=== PATIENT | female | born 1970 | race Caucasian/White ===

== ENCOUNTER → 2020-05-29 14:26 | Outpatient (BNVA) | payer MEDICARE, MEDICAID, SELFPAY | PROVIDERS: Family Provider Internal Medicine; Visit Provider Nurse Practitioner Family | DX: M54.6 Pain in thoracic spine (principal); M85.80 Other specified disorders of bone density and structure, unspecified site; M47.9 Spondylosis, unspecified | CPT/HCPCS: 72072 ==

== ENCOUNTER 2020-09-16 08:40 | Outpatient (CLI) | payer MEDICARE, MEDICAID, SELFPAY ==
--- NOTE | 2020-09-16 08:46 | CT_ITS ---
WS: [id number] CT scan of the neck. Additional two-dimensional coronal and sagittal reconstruction was performed. Clinical Data: OTALGIA BILATERAL Comparison: None. DLP: 1349.[address] scans at [facility] use at least one of these dose optimization techniques: automat ed exposure control; mA and/or kV adjustment per patient size (includes targeted exams where dose is matched to clinical indication); or iterative reconstruction. Findings: No lymphadenopathy is noted. The salivary glands are unremarkable. There is no prevertebral soft tiss ue swelling. The larynx is symmetric. The thyroid gland shows normal enhancement. The floor of the mo uth and parapharyngeal spaces are normal. The oral cavity is unremarkable. The carotid arteries bifurcate normally. The vertebral arteries are normal. The cervical spine shows mild osteoarthritic anterior spurring at C6-C7.. The lung apices show no abnormalities. The portions of the intracranial circulation which are seen demonstrate no abnormalities. No erosion of the skull or skull base is seen. The mastoid air cells, internal auditory canals, sella turcica, intraorbital c ontents and paranasal sinuses are normal. CT/CT neck w con* [id number] Impression: Negative CT scan of the neck.
[2020-09-16] MEDS: iohexol 300 mg/mL 100 mL Btl IV (09:39)
== END 2020-09-16 08:41 | disposition home or self-care (01) ==
PROVIDERS: PCP Internal Medicine; Visit Provider Otolaryngology
DX: H92.03 Otalgia, bilateral (principal)
CPT/HCPCS: 70491; Q9967

== ENCOUNTER 2020-10-30 12:07 | Inpatient (IN) | payer MEDICARE, MEDICAID, SELFPAY ==
[2020-10-30] VITALS (10 sets, daily range): BP systolic 119–136; BP diastolic 73–86; PULSE 66–86; RESP 14–23; TEMP 36.7–36.9; O2SAT 95–100; BMI 21.1
--- NOTE | 2020-10-30 12:41 | XRR_ITS ---
PROCEDURE INFORMATION: Exam: XR Chest, 1 View Exam date and time: 10/30/2020 1:45 PM Age: 50 years old Clinical indication: Cough and dyspnea; Additional info: Cough/dyspnea TECHNIQUE: Imaging protocol: XR of the chest Views: 1 view. COMPARISON: CR Chest 1 [place] [id number] 10/03/2014 2:59 PM FINDINGS: Lungs: Unremarkable. No consolidation. Pleural space: Unremarkable. No pleural effusion. No pneumothorax. Heart/Mediastinum: Unremarkable. No cardiomegaly. Bones/joints: Unremarkable. The examination is stable since prior examination. XR/XR chest 1V portable [id number] IMPRESSION: No acute findings.
--- NOTE | 2020-10-30 12:49 | ED_ITS ---
HPI - Weakness General: Chief complaint: Weakness Stated complaint: Low BP, Dehydrated Time Seen by Provider: 10/30/20 12:27 History of Present Illness: HPI Narrative: The patient is a 50-year-old female with past medical history ALS who comes to the ER from Dr. Oh's office. The patient has been having low-grade fevers, cough, shortness of breath, and increasing generalized weakness for the past couple days. She was sent in for further evaluation as she is generally weak and for pneumonia work-up and fluids. The patient says she took an albuterol inhaler yesterday and had some significant improvement of her shortness of breath. MD Complaint: generalized weakness and lack of energy Onset (ago): day(s) (2) Duration: constant Location: generalized Severity: moderate Quality: aching Relieving factors: none Exacerbating factors: exertion Context: recent illness Associated symptoms: Reports chills and myalgias; Denies chest pain, confusion or headache(s) Review of Systems General: Reports: 10 or more systems reviewed and unremarkable except in HPI and below Const: Reports: chills Eyes: Denies: change in vision, blurry vision or eye redness ENMT: Denies: throat pain, swelling of lips/tongue, ear or mastoid pain or nasal congestion Card: Denies: chest pain Resp: Reports: dyspnea, productive cough and non-productive cough GI: Denies: abdominal pain, diarrhea or GI cramping : Denies: flank pain, difficulty voiding, urinary frequency or urinary urgency Musc: Denies: neck pain, back pain, extremity pain, joint pain, joint redness, limited range of motion or muscle weakness Skin/Breast: Denies: rash, pruritus, erythema, skin pain or skin tenderness Neuro: Reports: weakness in extremities (Generalized weakness. No focal weakness. Her ALS symptoms are unchanged fro); Denies: headache(s), numbness in extremities, sensory changes, difficulty walking, dizziness, confusion or Slurred speech present Psych: Denies: anxiety or depression Endo: Denies: polyuria All/Imm: Denies: urticaria, throat swelling or tongue swelling Physical Exam Const: COMMON NORMALS: no acute distress, average body habitus, patient oriented x3, no limitations, healthy appearing, alert and well nourished GENERAL APPEARANCE: cooperative, comfortable, well kempt and well developed ORIENTATION/CONSCIOUSNESS: Yes awake, Yes oriented to person, Yes oriented to place and Yes oriented to time HENMT: COMMON NORMALS: normocephalic, external ears normal and Normal external nose present HEAD & SCALP: normal to inspection and normocephalic NOSE: N ormal external nose present EXTERNAL EAR: Yes external ears normal MOUTH: Normal oral and palatal mucosa present THROAT: posterior oropharynx normal Eye: COMMON NORMALS: Equal, round and reactive pupils present and EOMs intact bilaterally GENERAL EYE: appearance normal, both eyes and all related structures PUPIL: Yes Equal, round and reactive pupils present Neck/C-Spine: COMMON NORMALS: full ROM, no lymphadenopathy, no meningeal signs and no JVD GENERAL: Yes normal visual inspection Lymph: LYMPHATIC: no lymphadenopathy noted Chest: COMMONS NORMALS: normal inspection of the chest and normal palpation of entire chest wall Resp: COMMON NORMALS: normal respiratory effort, No retractions, No use of accessory muscles and percussion normal EFFORT & INSPECTION: Yes able to speak in complete sentences, No tachypneic, No respiratory distress, Yes Actively coughing, No uses accessory muscles and Yes other (Coarse breath sounds bilaterally at the bases) AUSCULTATION: diminished lung sounds PERCUSSION: percussion normal Cardio: COMMON NORMALS: no JVD, regular rate, regular rhythm, S1 normal heart sound present, S2 normal heart sound present and Peripheral pulses 2+ throughout RATE: regular rate RHYTHM: regular rhythm HEART SOUNDS: S1 normal heart sound present and S2 normal heart sound present PERIPHERAL PULSES: Peripheral pulses 2+ throughout GI: COMMON NORMALS: Normal to inspection, nondistended, normoactive bowel sounds present, Soft to palpation, non-tender and no masses INSPECTION: Yes normal to inspection PALPATION: Yes Soft to palpation : COMMON NORMALS: Yes no CVA tenderness BLADDER/KIDNEY EXAM: Yes no CVA tenderness Back/Pelvis: COMMON NORMALS: no CVA tenderness, thoracic and lumbar spine normal to inspection, no thoracic nor lumbar tenderness and thoraco-lumbar ROM normal Extremity: COMMON NORMALS: normal to inspection, full ROM, capillary refill normal, no joint enlargement and no pedal edema GENERAL: Yes normal exam except as noted Neuro: SELENA COMA SCALE: other (She has chronic generalized weakness from her ALS. This is unchanged and she feels fatigued but still has acceptable power in all extremities. No new focal weakness) COMMON NORMALS: patient oriented x3, CN's II-XII intact bilaterally, moves all extremities, no focal motor deficits, no sensory deficits noted and gait normal SENSORIUM/ORIENTATION: Yes alert, Yes oriented to person, Yes oriented to place and Yes oriented to time MENINGEAL SIGNS: Yes no meningeal signs Psych: COMMON NORMALS: mental status grossly normal, Normal thought process present, cooperative, normal affect and speech normal APPEARANCE: Yes well kempt ATTITUDE: Yes calm SPEECH: Yes normal speech THOUGHT PROCESS: Normal thought process present Skin: COMMON NORMALS: no rashes or lesions noted GENERAL SKIN EXAM: no rashes or lesions noted Course Vital Signs: Vital signs: Vital Signs Temperature 98.4 F 10/30/20 12:16 Pulse Rate 70 10/30/20 14:01 Respiratory Rate 18 10/30/20 14:01 Blood Pressure 119/78 10/30/20 13:47 Pulse Oximetry 100 10/30/20 14:01 MDM - Weakness MDM Narrative: Medical decision making narrative: The patient likely has acute bronchitis versus Covid versus other pathology. CXR negative. Rapid covid negative. Related to this infectious proximal as she has increasing general weakness. She has baseline ALS which causes her weakness. She is unable to get out of bed and will be unable to care for herself at home so I discussed with Dr. Arreola who accepts for observation Differential Diagnosis: Weakness Differential Diagnosis: Likely dehydration (Acute bronchitis) Lab Data: Labs: Lab Results 10/30/20 10/30/20 10/30/20 Range/Units 13:40 13:40 13:40 WBC 6.2 (4.0-10.0) 10^3/ uL RBC 4.39 (4.1-5.3) 10^6/u L Hgb 12.6 (11.5-15.3) g/dL Hct 37.5 (37.0-47.0) % MCV 85.4 (81-99) fL MCH 28.7 (28.0-34.0) pg MCHC 33.6 (30.0-36.0) g/dL RDW 13.2 (12.1-15.1) % Plt Count 300 (130-400) 10^3/c mm MPV 9.8 (7.4-10.4) fL Neut % (Auto) 47.7 % Lymph % (Auto) 41.5 % [place] % (Auto) 8.9 % Eos % (Auto) 1.6 % Baso % (Auto) 0.3 % Neut # (Auto) 2.96 (1.8-7.7) 10^3/u L Lymph # (Auto) 2.6 (0.8-4.8) 10^3/u L [place] # (Auto) 0.6 (0.2-0.9) 10^3/u L Eos # (Auto) 0.1 (0.0-0.8) 10^3/u L Baso # (Auto) 0.0 (0.0-0.1) 10^3/u L Nucleated RBC % (a uto) 0 % Nucleated RBCs # 0.0 /100WBC Sodium 137 (136-145) mmol/L Potassium 3.4 L (3.5-5.1) mmol/L Chloride 104 (98-107) mmol/L Carbon Dioxide 25 (22-29) mmol/L Anion Gap 11.4 (5-19) BUN 8 (6-20) mg/dL Creatinine 0.5 (0.5-0.9) mg/dL GFR Calculation 131.1 H (90-130) mL/min Glucose 95 (65-115) mg/dL Calculated Osmolal ity 282 L (285-295) mOsm/k g Lactate 0.8 (0.5-2.2) mmol/L Calcium 8.7 (8.5-10.5) mg/dL Total Bilirubin 0.5 (0.15-1.2) mg/dL AST 20 (0-32) U/L ALT 19 (0-33) U/L Alkaline Phosphata se 69 (35-105) IU/L Creatine Kinase 43 (26-192) U/L Total Protein 6.6 (6.6-8.7) g/dL Albumin 4.0 (3.5-5.2) g/dL Globulin 2.6 (1.3-4.6) g/dL Influenza Type A A g (Negative) Influenza Type B A g (Negative) SARS-CoV-2 Ag (Rap id) (Negative) 10/30/20 10/30/20 Range/Units 13:40 13:40 WBC (4.0-10.0) 10^3/ uL RBC (4.1-5.3) 10^6/u L Hgb (11.5-15.3) g/dL Hct (37.0-47.0) % MCV (81-99) fL MCH (28.0-34.0) pg MCHC (30.0-36.0) g/dL RDW (12.1-15.1) % Plt Count (130-400) 10^3/c mm MPV (7.4-10.4) fL Neut % (Auto) % Lymph % (Auto) % [place] % (Auto) % Eos % (Auto) % Baso % (Auto) % Neut # (Auto) (1.8-7.7) 10^3/u L Lymph # (Auto) (0.8-4.8) 10^3/u L [place] # (Auto) (0.2-0.9) 10^3/u L Eos # (Auto) (0.0-0.8) 10^3/u L Baso # (Auto) (0.0-0.1) 10^3/u L Nucleated RBC % (a uto) % Nucleated RBCs # /100WBC Sodium (136-145) mmol/L Potassium (3.5-5.1) mmol/L Chloride (98-107) mmol/L Carbon Dioxide (22-29) mmol/L Anion Gap (5-19) BUN (6-20) mg/dL Creatinine (0.5-0.9) mg/dL GFR Calculation (90-130) mL/min Glucose (65-115) mg/dL Calculated Osmolal ity (285-295) mOsm/k g Lactate (0.5-2.2) mmol/L Calcium (8.5-10.5) mg/dL Total Bilirubin (0.15-1.2) mg/dL AST (0-32) U/L ALT (0-33) U/L Alkaline Phosphata se (35-105) IU/L Creatine Kinase (26-192) U/L Total Protein (6.6-8.7) g/dL Albumin (3.5-5.2) g/dL Globulin (1.3-4.6) g/dL Influenza Type A A g Negative (Negative) Influenza Type B A g Negative (Negative) SARS-CoV-2 Ag (Rap id) Negative (Negative) Discharge Plan Discharge Prescriptions: No Action ondansetron HCl 4 mg tablet 4 mg PO Q6H PRN (Reason: nausea/vomiting) RF: 0 Senna-S 8.6-50 mg Tablet 1 tab-cap PO BID@0700,1900 RF: 0 omeprazole 40 mg capsule,delayed release(DR/EC) 40 mg PO DAILY@0700 RF: 0 propranolol 10 mg tablet 10 mg PO TID@0700,1300,1900 RF: 0 methocarbamol 750 mg tablet 750 mg PO TID@0700,1300,1900 RF: 0 Synthroid 125 mcg tablet 125 mcg PO DAILY@0700 RF: 0 triamcinolone acetonide 0.1 % Ointment 1 applic TOPICAL BID@07,1900 RF: 0 ibuprofen 200 mg Tablet 200 mg PO Q6H PRN (Reason: Pain) RF: 0 riluzole 50 mg tablet 50 mg PO Q12H RF: 0 montelukast 10 mg Tablet 10 mg PO DAILY@0700 RF: 0 lactulose 10 gram/15 mL Solution 15 ml PO BID@0700,1900 RF: 0 Pristiq 100 mg Tablet Extended Release 24 Hr 150 mg PO DAILY@0700 RF: 0 Linzess 145 mcg capsule 145 mcg PO DAILY@0700 RF: 0 Coding Level of Care Code ED [place] Protection Maintainer for Chg Fwd Exam Comprehensive
[2020-10-30 13:57] LABS: Basophils % 0.3 %; Eosinophils # 0.1 10^3/uL (0.0-0.8); Eosinophils % 1.6 %; Hematocrit 37.5 % (37.0-47.0); Hemoglobin 12.6 g/dL (11.5-15.3); Lymphocytes # 2.6 10^3/uL (0.8-4.8); Lymphocytes % 41.5 %; Mean Corpuscular HGB Conc 33.6 g/dL (30.0-36.0); Mean Corpuscular Hemoglobin 28.7 pg (28.0-34.0); Mean Corpuscular Volume 85.4 fL (81-99); Mean Platelet Volume 9.8 fL (7.4-10.4); Monocytes # 0.6 10^3/uL (0.2-0.9); Monocytes % 8.9 %; Neutrophils # 2.96 10^3/uL (1.8-7.7); Neutrophils % 47.7 %; Nucleated Red Blood Cells % 0 %; Platelet Count 300 10^3/cmm (130-400); Red Blood Count 4.39 10^6/uL (4.1-5.3); Red Cell Distribution Width 13.2 % (12.1-15.1); White Blood Count 6.2 10^3/uL (4.0-10.0)
[2020-10-30 14:17] LABS: Lactate (Lactic Acid level) 0.8 mmol/L (0.5-2.2)
[2020-10-30 14:19] LABS: Alanine Aminotransferase 19 U/L (0-33); Alkaline Phosphatase 69 IU/L (35-105); Anion Gap 11.4 (5-19); Aspartate Amino Transferase 20 U/L (0-32); Blood Urea Nitrogen 8 mg/dL (6-20); Calcium 8.7 mg/dL (8.5-10.5); Carbon Dioxide 25 mmol/L (22-29); Chloride 104 mmol/L (98-107); Creatine Phosphokinase 43 U/L (26-192); Globulin 2.6 g/dL (1.3-4.6); Glomerular Filtration Rate 131.1 mL/min (90-130); Glucose 95 mg/dL (65-115); Osmolality Calculated 282 mOsm/kg (285-295); Potassium 3.4 mmol/L (3.5-5.1); Sodium 137 mmol/L (136-145); Total Bilirubin 0.5 mg/dL (0.15-1.2); Total Protein 6.6 g/dL (6.6-8.7)
[2020-10-30] MEDS: ketorolac 30 mg/mL INJ IM (14:24)
[2020-10-30] MEDS: sodium chloride 0.9% 1,000 ML 999 ML IV (14:24)
[2020-10-30 14:32] LABS: Influenza A by IFA Negative (Negative); Influenza B by IFA Negative (Negative); SARS Covid-2 Antigen Negative (Negative)
[2020-10-30 15:31] LABS: Add Urine Microscopic? NO
[2020-10-30 15:45] LABS: Bilirubin Urine Neg (Negative); Blood Urine Neg (Negative); Glucose Urine UA Norm (Normal); HCG Qualitative Urine. Negative (Negative); Ketones Urine Negative (Negative); Leukocyte Esterase Urine Negative (Negative); Nitrate Urine Negative (Negative); Protein Urine Neg (Negative); Specific Gravity, Urine 1.005 (1.005-1.030); Urine Appearance Clear (CLEAR); Urine Color Yellow (Yellow); Urobilinogen Urine Norm (Negative); pH Urine 5 (5-7)
--- NOTE | 2020-10-30 16:27 | P.HP_ITS ---
Providers/Chief Complaint Primary Care Provider: Trice Hoskins MD Chief Complaint: Low BP, Dehydrated History of Present Illness 50-year-old female with a past medical history significant for anxiety, depression,neuropathy, hypertension, hypothyroidism, chronic obstructive pulmonary disease and amyotrophic lateral sclerosis, dysphagia with prior PEG tube who presented with generalized weakness. Patient stated normally she is ab le to walk with a cane however in the past three days she has not able able to ambulate due to weakness. Noted this to be bilateral lower extremity primarily. This was associated with dry cough and shortness of breath as well as low grade fevers. Denied any exposure to sick contacts. Upon arrival to ER her initial laboratory workup showed a WBC of 6.2, hemoglobin of 12.6, hematocrit 37.5 and a platelet count of 300. D-dimer was less than 0.27. Sodium 137, potassium 3.4, chloride 104, bicarb 25, BUN 8 and creatinine is 0.5. Lactic acid was 0.8. Ferritin of 40. LFTs within normal limits. CK of 43. urinalysis is negative. Influenza A/B negative. COVID-19 rapid antigen was also negative. PCR was sent and pending. Imaging studies include chest x-ray which did not show any acute abnormality. At the time of my evaluation patient was alert and awake however did have a notable dry cough. While in emergency room she was given IV fluid nebulized treatment. Due to progressive weakness and inability to care for self at home she was admitted to hospital Review of Systems General: Reports: 10 or more systems reviewed and unremarkable except in HPI and below Medications/Allergies Home Medications Medication Instructions Recorded Confirmed Last Taken Type albuterol sulfate 2.5 mg INHALATION Q6H 10/30/20 10/30/20 10/30/20 History cetirizine 10 mg PO DAILY@0700 10/30/20 10/30/20 10/30/20 History clonazepam 0.5 mg PO BID@0700,1900 10/30/20 10/30/20 10/30/20 History desvenlafaxine succinate [Pristiq] 150 mg PO DAILY@0700 10/30/20 10/30/20 10/30/20 History fluticasone propionate 50 mcg INTRANASAL BID@0700,1900 10/30/20 10/30/20 10/30/20 History ibuprofen 200 mg PO Q6H PRN 10/30/20 10/30/20 10/30/20 History lactulose 15 ml PO BID@0700,1900 10/30/20 10/30/20 10/30/20 History levothyroxine [Synthroid] 125 mcg PO DAILY@0700 10/30/20 10/30/20 10/30/20 History linaclotide [Linzess] 145 mcg PO DAILY@0700 10/30/20 10/30/20 10/30/20 History methocarbamol 750 mg PO TID@0700,1300,1900 10/30/20 10/30/20 10/30/20 History montelukast 10 mg PO DAILY@0700 10/30/20 10/30/20 10/30/20 History omeprazole 40 mg PO DAILY@0700 10/30/20 10/30/20 10/30/20 History ondansetron HCl 4 mg PO Q6H PRN 10/30/20 10/30/20 Unknown History propranolol 10 mg PO TID@0700,1300,1900 10/30/20 10/30/20 10/30/20 History riluzole 50 mg PO Q12H 10/30/20 10/30/20 10/30/20 History sennosides-docusate sodium 1 tab-cap PO BID@0700,1900 10/30/20 10/30/20 10/30/20 History [Senna-S] triamcinolone acetonide 1 applic TOPICAL BID@0700,1900 10/30/20 10/30/20 10/30/20 History Allergies Allergy/AdvReac Type Severity Reaction Status Date / Time buspirone [From BuSpar] Allergy ADR-Nausea Verified 10/30/20 15:02 clorazepate dipotassium Allergy ADR-Itching Verified 10/30/20 15:06 [From Tranxene T-Tab] doxycycline Allergy ADR-Chest Verified 10/30/20 15:03 Pain gabapentin Allergy Unknown Verified 10/30/20 15:06 orphenadrine [From Norflex] Allergy ALGY-Hives Verified 10/30/20 15:06 oxybutynin Allergy ADR-Headach Verified 10/30/20 15:06 e sertraline [From Zoloft] Allergy ADR-Muscle Verified 10/30/20 15:06 Pain verapamil Allergy ADR-Itching Verified 10/30/20 15:06 PFSH Acute PFSH: Social History (Updated 10/30/20 @ 20:04 by Bill Arreola MD) Smoking and tobacco status: former smoker Alcohol intake: never Substance/Drug Use: never Vitals/I&O/Wt Last Vital Signs Temp 98.4 F 10/30/20 12:16 Pulse 75 10/30/20 16:00 Resp 23 H 10/30/20 16:00 BP 121/73 10/30/20 16:00 Pulse Ox 98 10/30/20 16:00 Weight last 48 hrs Weight 55.792 kg Physical Exam Narrative: EXAM NARRATIVE: General: Awake alert, mild distress due to cough HEENT: Grossly unremarkable Chest : Non-labored respiration CVS : NSR ABD : Soft, NT, ND Ext : no edema Neuro : baseline speech abnormality, generalized weakness moving all ext. No lateralizing deficits. Data : 10/30/20 13:40 10/30/20 13:40 A&P Assessment and plan (1) Depression: Status: Acute (2) Hypothyroidism: Status: Acute (3) Hypertension: Status: Acute (4) COPD (chronic obstructive pulmonary disease): Status: Acute (5) Dysphagia: Status: Acute (6) ALS (amyotrophic lateral sclerosis): Status: Acute (7) Adult failure to thrive: Status: Acute (8) Generalized weakness: Status: Acute Generalized weakness / adult failure thrive - No obvious infectious process - Chest x-ray, UA appeared to be normal - Obtain blood culture x2 - Obtain procalcitonin - Will consult speech therapy - PT and OT consult - Fall precautions - Possibly due to progression of ALS - Will d/w neurology - NS at 75 cc/hr - NPO until [facility] Amyotrophic lateral sclerosis - Following with Dr. smith - WIll continue Riluzole - Ok to take home med Mild COPD/Asthma exacerbation - Continue albuteral 1 puff q4hr - Continue home meds - Chest x-ray - no obvious infectious process - Supplemental o2 as needed Hypertension - Propranolol 10 mg PO TID Hypothyroidism - Synthroid 125mcg PO daily - TSH reflex Ft4 in AM Anxiety/Depression - Prestiq 150 mg PO daily GI ppx - Protonix 40 mg PO daily DVT ppx - Lovenox 40 mg SQ daily Attestations Medical Necessity Statement*: Will place in observation status due to generalized weakness and adult failure to thrive. Anticipate less than 2 midnight stay in hospital for evaluation. Time Spent in Patient Care: Greater than 35 minutes (>than 50% of time spent in counselling and/or direct pt care on unit) . Coding Level of Care Code Acute Commercial Assistant for g Fwd Diagnoses Depression F32.9 Hypothyroidism E03.9 Hypertension I10 COPD (chronic obstructive pulmonary disease) J44.9 Dysphagia R13.10 ALS (amyotrophic lateral sclerosis) G12.21 Adult failure to thrive R62.7 Generalized weakness R53.1
[2020-10-30 18:15] LABS: D Dimer <= 0.27 ug/mIFEU (0-0.59)
[2020-10-30] MEDS: sodium chloride 0.9% 1,000 ML 75 ML IV (18:18)
[2020-10-30] MEDS: enoxaparin 40 mg/0.4 mL Syringe SUBCUT (18:25)
[2020-10-30] MEDS: propranolol 20 mg Tablet 10 MG PO (18:25)
[2020-10-30 18:28] LABS: Procalcitonin 0.04 ng/mL (0-0.5)
--- NOTE | 2020-10-30 18:35 | PC.NURSE ---
patient states she lives at home by self, her exhusband lives close and checks on her all the time. she said she has [facility], she said she uses [facility] at [facility].
[2020-10-30 18:39] LABS: C Reactive Protein 0.3 mg/L (0.0-4.9); Ferritin 40 ng/mL (15-150)
[2020-10-31] VITALS (10 sets, daily range): BP systolic 111–127; BP diastolic 68–73; PULSE 70–100; RESP 14–18; TEMP 36.5–37.1; O2SAT 95–98
[2020-10-31 04:47] LABS: Basophils % 0.4 %; Eosinophils # 0.1 10^3/uL (0.0-0.8); Eosinophils % 1.8 %; Hematocrit 33.2 % (37.0-47.0); Hemoglobin 11.1 g/dL (11.5-15.3); Lymphocytes # 2.9 10^3/uL (0.8-4.8); Lymphocytes % 50.4 %; Mean Corpuscular HGB Conc 33.4 g/dL (30.0-36.0); Mean Corpuscular Hemoglobin 28.8 pg (28.0-34.0); Mean Platelet Volume 9.4 fL (7.4-10.4); Monocytes # 0.4 10^3/uL (0.2-0.9); Monocytes % 7.5 %; Neutrophils # 2.27 10^3/uL (1.8-7.7); Neutrophils % 39.7 %; Nucleated Red Blood Cells % 0 %; Platelet Count 241 10^3/cmm (130-400); Red Blood Count 3.86 10^6/uL (4.1-5.3); Red Cell Distribution Width 13.5 % (12.1-15.1); White Blood Count 5.7 10^3/uL (4.0-10.0)
[2020-10-31 05:36] LABS: Alanine Aminotransferase 15 U/L (0-33); Albumin Level 3.5 g/dL (3.5-5.2); Alkaline Phosphatase 53 IU/L (35-105); Anion Gap 13.2 (5-19); Aspartate Amino Transferase 19 U/L (0-32); Blood Urea Nitrogen 7 mg/dL (6-20); Carbon Dioxide 23 mmol/L (22-29); Chloride 107 mmol/L (98-107); Globulin 2.1 g/dL (1.3-4.6); Glomerular Filtration Rate 131.1 mL/min (90-130); Glucose 80 mg/dL (65-115); Osmolality Calculated 287 mOsm/kg (285-295); Phosphorus 3.5 mg/dL (2.5-4.5); Potassium 3.2 mmol/L (3.5-5.1); Sodium 140 mmol/L (136-145); Total Bilirubin 0.5 mg/dL (0.15-1.2); Total Protein 5.6 g/dL (6.6-8.7)
[2020-10-31] MEDS: sodium chloride 0.9% 1,000 ML 75 ML IV ×2 (06:47→21:46)
[2020-10-31] MEDS: ketorolac 30 mg/mL INJ 15 MG IVP ×2 (09:37→15:30)
[2020-10-31] MEDS: ondansetron 2 mg/ML SDV 2 mL 4 MG IVP (10:07)
--- NOTE | 2020-10-31 11:06 | PC.OT ---
OT EVALUATION ATTEMPTED. PATIENT TEARFULLY STATED THAT SHE WAS IN PAIN AND HAD UPSET STOMACH. HAD NOT EATEN IN 24 HOURS AND DOCTOR SAID THAT SHE COULD HAVE NPO UNTIL ST EVALUATION. ASKED IF WE COULD HOLD UNTIL TOMORROW WHEN HOPEFULLY SHE FELT BETTER.
--- NOTE | 2020-10-31 14:30 | P.PN_ITS ---
Subjective Subjective: Interval history: 50-year-old female with a past medical history significant for anxiety, depression,neuropathy, hypertension, hypothyroidism, chronic obstructive pulmonary disease and amyotrophic lateral sclerosis, dysphagia with prior PEG tube who presented with generalized weakness. Patient stated normally she is able to walk with a cane however in the past three days she has not able able to ambulate due to weakness. Noted this to be bilateral lower extremity primarily. This was associated with dry cough and shortness of breath as well as low grade fevers. Denied any exposure to sick contacts. Upon arrival to ER her initial laboratory workup showed a WBC of 6.2, hemoglobin of 12.6, hematocrit 37.5 and a platelet count of 300. D-dimer was less than 0.27. Sodium 137, potassium 3.4, chloride 104, bicarb 25, BUN 8 and creatinine is 0.5. Lactic acid was 0.8. Ferritin of 40. LFTs within normal limits. CK of 43. urinalysis is negative. Influenza A/B negative. COVID-19 rapid antigen was also negative. PCR was sent and pending. Imaging studies include chest x-ray which did not show any acute abnormality. At the time of my evaluation patient was alert and awake however did have a notable dry cough. While in emergency room she was given IV fluid nebulized treatment. Due to progressive weakness and inability to care for self at home she was admitted to hospital Medications: Reviewed: Yes Vitals/I&O/Wt Last Vital Signs Temp 98.2 F 10/31/20 20:12 Pulse 87 10/31/20 20:14 Resp 17 10/31/20 20:14 BP 115/73 10/31/20 20:12 Pulse Ox 97 10/31/20 20:14 10/31/20 10/31/20 10/31/20 06:59 14:59 22:59 Intake Total 936.25 / 1936.25 320 / 320 1000 / 1320 Output Total 275 / 275 750 / 750 800 / 1550 Balance 661.25 / 1661.25 -430 / -430 200 / -230 Weight last 48 hrs Weight 55.792 kg Physical Exam Narrative: EXAM NARRATIVE: General: Awake alert, nad HEENT: Grossly unremarkable Chest : Non-labored respiration CVS : NSR ABD : Soft, NT, ND Ext : no edema Neuro : baseline speech abnormality, generalized weakness moving all ext. No lateralizing deficits. Data : 10/31/20 04:09 10/31/20 04:09 Micro: Microbiology 10/30/20 20:31 Blood Culture - Preliminary Blood NEGATIVE TO DATE 10/30/20 20:13 Blood Culture - Preliminary Blood NEGATIVE TO DATE A&P Assessment and plan (1) Depression: Status: Acute (2) Hypothyroidism: Status: Acute (3) Hypertension: Status: Acute (4) COPD (chronic obstructive pulmonary disease): Status: Acute (5) Dysphagia: Status: Acute (6) ALS (amyotrophic lateral sclerosis): Status: Acute (7) Adult failure to thrive: Status: Acute (8) Generalized weakness: Status: Acute Generalized weakness / adult failure thrive - Possible due to progession of ALS - ST eval - no risk of aspiration - Will start regular diet - AM labs - PT consult pending. Amyotrophic lateral sclerosis - Following with Dr. smith - WIll continue Riluzole - Ok to take home med Mild COPD/Asthma exacerbation - Continue albuteral 1 puff q4hr - Continue home meds - Chest x-ray - no obvious infectious process - Supplemental o2 as needed Hypertension - Propranolol 10 mg PO TID Hypothyroidism - Synthroid 125mcg PO daily - TSH reflex Ft4 in AM Anxiety/Depression - Prestiq 150 mg PO daily GI ppx - Protonix 40 mg PO daily DVT ppx - Lovenox 40 mg SQ daily Attestations Medical Necessity Statement*: Will need further hospitalization for dysphagia and continued weakness. Time Spent in Patient Care: Greater than 35 minutes (>than 50% of time spent in counselling and/or direct pt care on unit) . Coding Level of Care Code Acute Hand Weaver for g Fwd Diagnoses Depression F32.9 Hypothyroidism E03.9 Hypertension I10 COPD (chronic obstructive pulmonary disease) J44.9 Dysphagia R13.10 ALS (amyotrophic lateral sclerosis) G12.21 Adult failure to thrive R62.7 Generalized weakness R53.1
[2020-10-31] MEDS: metoclopramide oral liquid 5 mg/5 mL (ml) PO (16:41)
[2020-10-31] MEDS: propranolol 20 mg Tablet 10 MG PO (18:48)
[2020-10-31] MEDS: enoxaparin 40 mg/0.4 mL Syringe SUBCUT (18:49)
--- NOTE | 2020-10-31 19:31 | PC.NURSE ---
[facility]
[2020-10-31 20:37] LABS: Quest SARS-CoV-2 RNA NOT DETECTED (NOT DETECTED)
[2020-10-31] MEDS: acetaminophen 325 mg Tablet 650 MG PO (21:39)
[2020-11-01] VITALS (9 sets, daily range): BP systolic 100–131; BP diastolic 60–87; PULSE 68–93; RESP 12–18; TEMP 36.5–37.2; O2SAT 93–98
[2020-11-01 05:59] LABS: Basophils % 0.3 %; Eosinophils # 0.1 10^3/uL (0.0-0.8); Hematocrit 37.9 % (37.0-47.0); Hemoglobin 12.5 g/dL (11.5-15.3); Lymphocytes # 3.4 10^3/uL (0.8-4.8); Lymphocytes % 38.7 %; Mean Corpuscular Hemoglobin 29.1 pg (28.0-34.0); Mean Corpuscular Volume 88.1 fL (81-99); Mean Platelet Volume 9.8 fL (7.4-10.4); Monocytes # 0.8 10^3/uL (0.2-0.9); Neutrophils # 4.37 10^3/uL (1.8-7.7); Neutrophils % 50.7 %; Nucleated Red Blood Cells % 0 %; Platelet Count 253 10^3/cmm (130-400); Red Cell Distribution Width 13.3 % (12.1-15.1); White Blood Count 8.7 10^3/uL (4.0-10.0)
[2020-11-01 06:35] LABS: Alanine Aminotransferase 15 U/L (0-33); Albumin Level 3.7 g/dL (3.5-5.2); Alkaline Phosphatase 58 IU/L (35-105); Anion Gap 18.6 (5-19); Aspartate Amino Transferase 20 U/L (0-32); Blood Urea Nitrogen 6 mg/dL (6-20); Calcium 8.5 mg/dL (8.5-10.5); Carbon Dioxide 16 mmol/L (22-29); Chloride 106 mmol/L (98-107); Globulin 2.4 g/dL (1.3-4.6); Glomerular Filtration Rate 131.1 mL/min (90-130); Glucose 64 mg/dL (65-115); Osmolality Calculated 280 mOsm/kg (285-295); Potassium 3.6 mmol/L (3.5-5.1); Sodium 137 mmol/L (136-145); Total Bilirubin 0.5 mg/dL (0.15-1.2); Total Protein 6.1 g/dL (6.6-8.7)
[2020-11-01] MEDS: albuterol 8 gm MDI 2 PUFF INHALATION (08:43)
[2020-11-01] MEDS: propranolol 20 mg Tablet 10 MG PO ×3 (09:07→18:32)
[2020-11-01] MEDS: montelukast sodium 10 mg Tablet PO (09:08)
[2020-11-01] MEDS: levothyroxine 125 mcg Tablet PO (09:08)
[2020-11-01] MEDS: pantoprazole DR 40 mg Tablet PO (09:08)
[2020-11-01] MEDS: desvenlafaxine 50 mg Tablet 150 MG PO (09:10)
[2020-11-01] MEDS: acetaminophen 325 mg Tablet 650 MG PO (11:01)
[2020-11-01] MEDS: ketorolac 30 mg/mL INJ 15 MG IVP (11:01)
[2020-11-01] MEDS: sodium chloride 0.9% 1,000 ML 75 ML IV (12:10)
[2020-11-01] MEDS: HYDROcodone-acetaminophen 5-325 mg Tablet 1 TAB PO (16:35)
--- NOTE | 2020-11-01 17:44 | P.PN_ITS ---
Subjective Subjective: Interval history: 50-year-old female with a past medical history significant for anxiety, depression,neuropathy, hypertension, hypothyroidism, chronic obstructive pulmonary disease and amyotrophic lateral sclerosis, dysphagia with prior PEG tube who presented with generalized weakness. Patient stated normally she is able to walk with a cane however in the past three days she has not able able to ambulate due to weakness. Noted this to be bilateral lower extremity primarily. This was associated with dry cough and shortness of breath as well as low grade fevers. Denied any exposure to sick contacts. Upon arrival to ER her initial laboratory workup showed a WBC of 6.2, hemoglobin of 12.6, hematocrit 37.5 and a platelet count of 300. D-dimer was less than 0.27. Sodium 137, potassium 3.4, chloride 104, bicarb 25, BUN 8 and creatinine is 0.5. Lactic acid was 0.8. Ferritin of 40. LFTs within normal limits. CK of 43. urinalysis is negative. Influenza A/B negative. COVID-19 rapid antigen was also negative. PCR was sent and pending. Imaging studies include chest x-ray which did not show any acute abnormality. At the time of my evaluation patient was alert and awake however did have a notable dry cough. While in emergency room she was given IV fluid nebulized treatment. Due to progressive weakness and inability to care for self at home she was admitted to hospital 11/01 Patient was able to tolerate oral intake however still feeling to weak to care f or self at home. No fever, chills, nausea or vomiting. no chest pain or respiratory distress. Medications: Reviewed: Yes Vitals/I&O/Wt Last Vital Signs Temp 98.9 F 11/01/20 16:00 Pulse 74 11/01/20 16:00 Resp 18 11/01/20 16:00 BP 129/77 11/01/20 16:00 Pulse Ox 97 11/01/20 16:00 11/01/20 11/01/20 11/01/20 06:59 14:59 22:59 Intake Total 1240 / 1240 Output Total 700 / 2250 500 / 500 Balance -700 / -810 740 / 740 Physical Exam Narrative: EXAM NARRATIVE: General: Awake alert, nad HEENT: Grossly unremarkable Chest : Non-labored respiration CVS : NSR ABD : Soft, NT, ND Ext : no edema Neuro : baseline speech abnormality, generalized weakness moving all ext. No lateralizing deficits. Data : 11/01/20 05:47 11/01/20 05:47 Micro: Microbiology 10/30/20 20:31 Blood Culture - Preliminary Blood NEGATIVE TO DATE 10/30/20 20:13 Blood Culture - Preliminary Blood NEGATIVE TO DATE A&P Assessment and plan (1) Depression: Status: Acute (2) Hypothyroidism: Status: Acute (3) Hypertension: Status: Acute (4) COPD (chronic obstructive pulmonary disease): Status: Acute (5) Dysphagia: Status: Acute (6) ALS (amyotrophic lateral sclerosis): Status: Acute (7) Adult failure to thrive: Status: Acute (8) Generalized weakness: Status: Acute (9) Hypoglycemia: Status: Acute Generalized weakness / adult failure thrive - Possible due to progression of ALS - ST eval - no risk of aspiration - Diet initiated - however noted to be hypoglycemic in am - AM labs - PT consult pending. Amyotrophic lateral sclerosis - Following with Dr. smith - Will continue Riluzole - Ok to take home med Mild COPD/Asthma exacerbation - Continue albuteral 1 puff q4hr - Continue home meds - Chest x-ray - no obvious infectious process - Supplemental o2 as needed Hypertension - Propranolol 10 mg PO TID Hypothyroidism - Synthroid 125mcg PO daily - TSH reflex Ft4 in AM Anxiety/Depression - Prestiq 150 mg PO daily GI ppx - Protonix 40 mg PO daily DVT ppx - Lovenox 40 mg SQ daily Disposition D/w patient regarding home vs SNF Unable to initiate home care at this time Attestations Medical Necessity Statement*: Will require further hospitalization for weakness, hypoglycemia. anticipate discharge in 1-2 days Time Spent in Patient Care: Greater than 35 minutes (>than 50% of time spent in counselling and/or direct pt care on unit) . Coding Level of Care Code Acute Package Reinspector for Chg Fwd Diagnoses Depression F32.9 Hypothyroidism E03.9 Hypertension I10 COPD (chronic obstructive pulmonary disease) J44.9 Dysphagia R13.10 ALS (amyotrophic lateral sclerosis) G12.21 Adult failure to thrive R62.7 Generalized weakness R53.1 Hypoglycemia E16.2
[2020-11-01] MEDS: enoxaparin 40 mg/0.4 mL Syringe SUBCUT (18:09)
[2020-11-02] VITALS: BP 110/70; PULSE 65; RESP 14; TEMP 36.3; O2SAT 96
[2020-11-02 05:39] LABS: Basophils % 0.4 %; Eosinophils # 0.1 10^3/uL (0.0-0.8); Eosinophils % 1.5 %; Hematocrit 32.3 % (37.0-47.0); Hemoglobin 10.8 g/dL (11.5-15.3); Lymphocytes # 2.8 10^3/uL (0.8-4.8); Lymphocytes % 50.3 %; Mean Corpuscular HGB Conc 33.4 g/dL (30.0-36.0); Mean Corpuscular Volume 86.6 fL (81-99); Mean Platelet Volume 9.8 fL (7.4-10.4); Monocytes # 0.6 10^3/uL (0.2-0.9); Neutrophils # 2.08 10^3/uL (1.8-7.7); Neutrophils % 37.6 %; Nucleated Red Blood Cells % 0 %; Platelet Count 254 10^3/cmm (130-400); Red Blood Count 3.73 10^6/uL (4.1-5.3); Red Cell Distribution Width 13.8 % (12.1-15.1); White Blood Count 5.5 10^3/uL (4.0-10.0)
[2020-11-02] MEDS: sodium chloride 0.9% 1,000 ML 75 ML IV (06:12)
[2020-11-02] MEDS: montelukast sodium 10 mg Tablet PO (06:12)
[2020-11-02] MEDS: desvenlafaxine 50 mg Tablet 150 MG PO (06:12)
[2020-11-02] MEDS: levothyroxine 125 mcg Tablet PO (06:14)
[2020-11-02 06:16] LABS: Alanine Aminotransferase 14 U/L (0-33); Albumin Level 3.3 g/dL (3.5-5.2); Alkaline Phosphatase 50 IU/L (35-105); Anion Gap 11.2 (5-19); Aspartate Amino Transferase 16 U/L (0-32); Blood Urea Nitrogen 3 mg/dL (6-20); Calcium 7.8 mg/dL (8.5-10.5); Carbon Dioxide 23 mmol/L (22-29); Chloride 108 mmol/L (98-107); Creatinine Clr Calc Pharmacy 148.0844; Globulin 2.1 g/dL (1.3-4.6); Glomerular Filtration Rate 169.7 mL/min (90-130); Glucose 97 mg/dL (65-115); Osmolality Calculated 284 mOsm/kg (285-295); Potassium 3.2 mmol/L (3.5-5.1); Sodium 139 mmol/L (136-145); Total Bilirubin 0.5 mg/dL (0.15-1.2); Total Protein 5.4 g/dL (6.6-8.7)
[2020-11-02] MEDS: propranolol 20 mg Tablet 10 MG PO ×2 (06:17→12:57)
[2020-11-02 08:00] VITALS: BP 124/76; PULSE 63; PULSE 65; RESP 16; RESP 18; TEMP 36.7; O2SAT 96
[2020-11-02] MEDS: pantoprazole DR 40 mg Tablet PO (09:07)
[2020-11-02] MEDS: acetaminophen 325 mg Tablet 650 MG PO (09:07)
[2020-11-02 09:21] VITALS: PULSE 65; RESP 16; O2SAT 96
[2020-11-02 12:00] VITALS: BP 129/80; PULSE 68; RESP 17; TEMP 36.7; O2SAT 98
[2020-11-02] MEDS: potassium chloride ER 20 mEq Tablet PO (12:56)
[2020-11-02 15:06] VITALS: BP 129/80; PULSE 68; RESP 17; TEMP 36.7; O2SAT 98
--- NOTE | 2020-11-02 16:49 | PM.DCS ---
Discharge Providers Date of Admission: 10/31/20 16:16 Date of Discharge: November 02, 2020 Attending Provider at Admission: Bill Arreola Attending Provider at Discharge: Bill Arreola Primary Care Provider: Trice Hoskins MD Diagnoses at Discharge Discharge Diagnosis (1) Depression: Status: Acute (2) Hypothyroidism: Status: Acute (3) Hypertension: Status: Acute (4) COPD (chronic obstructive pulmonary disease): Status: Acute (5) Dysphagia: Status: Resolved (6) ALS (amyotrophic lateral sclerosis): Status: Acute (7) Adult failure to thrive: Status: Acute (8) Generalized weakness: Status: Acute (9) Hypoglycemia: Status: Acute Reason for Visit Reason for Visit: Low BP, Dehydrated Hospital Course Hospital Course 50-year-old female with a past medical history significant for anxiety, depression,neuropathy, hypertension, hypothyroidism, chronic obstructive pulmonary disease and amyotrophic lateral sclerosis, dysphagia with prior PEG tube who presented with generalized weakness. Patient stated normally she is able to walk with a cane however in the past three days she has not able able to ambulate due to weakness. Noted this to be bilateral lower extremity primarily. This was associated with dry cough and shortness of breath as well as low grade fevers. Denied any exposure to sick contacts. Upon arrival to ER her initial laboratory workup showed a WBC of 6.2, hemoglobin of 12.6, hematocrit 37.5 and a platelet count of 300. D-dimer was less than 0.27. Sodium 137, potassium 3.4, chloride 104, bicarb 25, BUN 8 and creatinine is 0.5. Lactic acid was 0.8. Ferritin of 40. LFTs within normal limits. CK of 43. urinalysis is negative. Influenza A/B negative. COVID-19 rapid antigen was also negative. PCR was sent and pending. Imaging studies include chest x-ray which did not show any acute abnormality. At the time of my evaluation patient was alert and awake however did have a notable dry cough. While in emergency room she was given IV fluid nebulized treatment. Due to progressive weakness and inability to care for self at home she was admitted to hospital. Patient continued to improve. Was noted to have hypokalemia which was replaced. Speech therapy evaluation was obtained and patient was able to start a regular diet. No risk of aspiration was noted. Patient was seen by physical therapy and also noted patient to be at baseline. Sepsis was ruled out. No evidence of acute infection. Patient was wanting to be discharge. Advised to follow-up outpatient with Neurology. Physical Exam Narrative: EXAM NARRATIVE: General: Awake alert, nad HEENT: Grossly unremarkable Chest : Non-labored respiration CVS : NSR ABD : Soft, NT, ND Ext : no edema Neuro : baseline speech abnormality, generalized weakness moving all ext. No lateralizing deficits. Discharge Data Data Completed and Pending: Completed Studies During Hospitalization Category Date Time Status XR chest 1V last ble [id number] Urgent Exams 10/30/20 12:41 Completed Vitals: Last Vital Signs Temp 98.0 F 11/02/20 15:06 Pulse 68 11/02/20 15:06 Resp 17 11/02/20 15:06 BP 129/80 11/02/20 15:06 Pulse Ox 98 11/02/20 15:06 Discharge Plan Discharge Patient Disposition: Home Condition: Stable Prescriptions: Continued ondansetron HCl 4 mg tablet 4 mg PO Q6H PRN (Reason: nausea/vomiting) RF: 0 Senna-S 8.6-50 mg Tablet 1 tab-cap PO BID@0700,1900 RF: 0 omeprazole 40 mg capsule,delayed release(DR/EC) 40 mg PO DAILY@0700 RF: 0 propranolol 10 mg tablet 10 mg PO TID@0700,1300,1900 RF: 0 methocarbamol 750 mg tablet 750 mg PO TID@0700,1300,1900 RF: 0 Synthroid 125 mcg tablet 125 mcg PO DAILY@0700 RF: 0 triamcinolone acetonide 0.1 % Ointment 1 applic TOPICAL BID@0700,1900 RF: 0 ibuprofen 200 mg Tablet 200 mg PO Q6H PRN (Reason: Pain) RF: 0 riluzole 50 mg tablet 50 mg PO Q12H RF: 0 montelukast 10 mg Tablet 10 mg PO DAILY@0700 RF: 0 lactulose 10 gram/15 mL Solution 15 ml PO BID@0700,1900 RF: 0 Pristiq 100 mg Tablet Extended Release 24 Hr 150 mg PO DAILY@0700 RF: 0 Linzess 145 mcg capsule 145 mcg PO DAILY@0700 RF: 0 albuterol sulfate 2.5 mg /3 mL (0.083 %) solution for nebulization 2.5 mg inhalation Q6H RF: 0 cetirizine 10 mg Tablet 10 mg PO DAILY@0700 RF: 0 clonazepam 0.5 mg tablet 0.5 mg PO BID@07,1900 RF: 0 fluticasone propionate 50 mcg/actuation spray,suspension 50 mcg INTRANASAL BID@07,1900 RF: 0 Discharge Orders: Discharge Order (Routine); Ordered 11/02/20 Ordered By: Bill Arreola Referrals: [facility] [Outside] Trice Hoskins MD [Primary Care Provider] - Discharge Diet: Regular Discharge Activity: Increase activity as tolerated Patient Instructions: Failure to Thrive (DC), Diabetic Hypoglycemia (DC), Weakness (Generalized) Discharge Attestations Time Spent in Discharge Care*: greater than 30 min Specific Discharge Activities: educating patient, discussing with pcp/other providers, discussing with assistant case manager/social workers/dc planners, documenting/other paperwork and evaluating patient/reviewing data Status at Discharge: Cognitive status at discharge: cognitively intact, Behavioral status at discharge: cooperative, Functional status at discharge: other assisted ambulation Overall status at discharge: patient is back to baseline Quality Metrics Clinical Quality Measures During this hospital stay, did patient experience: None Coding Level of Care Code Acute Affiliate Manager for Chg Fwd Diagnoses Depression F32.9 Hypothyroidism E03.9 Hypertension I10 COPD (chronic obstructive pulmonary disease) J44.9 Dysphagia R13.10 ALS (amyotrophic lateral sclerosis) G12.21 Adult failure to thrive R62.7 Generalized weakness R53.1 Hypoglycemia E16.2
--- NOTE | 2020-11-04 16:37 | PC.RESP ---
Pulmonary Rehab information sent to patient.
== END 2020-11-02 15:07 | disposition home or self-care (01) | DRG 948 ==
LOC: ER 12:56 → MEDSURG 17:08
PROVIDERS: Admitting Provider Hospitalist; Emergency Provider Family Medicine; PCP Internal Medicine; Visit Provider Hospitalist
DX: R53.1 Weakness (principal); G12.21 Amyotrophic lateral sclerosis; F41.8 Other specified anxiety disorders; G62.9 Polyneuropathy, unspecified; I10 Essential (primary) hypertension; E03.9 Hypothyroidism, unspecified; J44.9 Chronic obstructive pulmonary disease, unspecified; Z93.1 Gastrostomy status; Z87.891 Personal history of nicotine dependence; R13.10 Dysphagia, unspecified; R62.7 Adult failure to thrive; Z68.21 Body mass index [BMI] 21.0-21.9, adult; E16.2 Hypoglycemia, unspecified; E87.6 Hypokalemia; Z79.51 Long term (current) use of inhaled steroids
CPT/HCPCS: 12345; 36415; 71045; 80053; 81003; 81025; 82550; 82728; 83605; 84100; 84145; 85025; 85378; 86140; 87040; 87426; 87635; 87804; 92507; 92526; 92610; 94640; 94664; 96372; 97110; 97162; 97166; 97530; 99283; G0378; J1650; J1885; J2405; J3535; J7030

== ENCOUNTER 2021-03-11 14:33 | Outpatient (CLI) | payer MEDICARE, MEDICAID, SELFPAY ==
--- NOTE | 2021-03-11 14:46 | USCV_ITS ---
Megan Mandujano Age: 50 Gender: F : 1970 Exam Date: 03/11/2021 14:39 Ordering Phys: Sindi Vick HOG SCRAPER HOG SCRAPER Technologist: Exam Location: [facility] [place]_ Indication: POOR PERIPH. CIRCULATION, PT HAS ALS. NON SMOKER, NOT DIABETIC RIGHT LEFT Brachial 140.00 mmHg Brachial 139.00 mmHg Pressure (mmHg) Waveform Pressure (mmHg) Waveform 156.00 Above Knee 151.00 152.00 Below Knee 158.00 150.00 VP INFORMATICS 140.00 149.00 DPA 160.00 1.07 Ankle/Brachial Index 1.10 0.77 Pre-Exercise Toe Pressure 0.79 FINDINGS Normal resting ABIs bilaterally Normal resting TBI's bilaterally . CONCLUSIONS No significant arterial obstruction, based on the above findings Dr Flavio Crain MD [facility] (Electronically Signed) Final Date: 12 Mar 2021 08:03 S
== END 2021-03-11 14:34 | disposition home or self-care (01) ==
LOC: RAD 14:36
PROVIDERS: PCP Internal Medicine; Visit Provider Nurse Practitioner Family
DX: R23.0 Cyanosis (principal); I73.9 Peripheral vascular disease, unspecified
CPT/HCPCS: 93923

== ENCOUNTER 2021-04-08 15:01 | Outpatient (CLI) | payer MEDICARE, MEDICAID, SELFPAY ==
--- NOTE | 2021-04-08 15:09 | XRR_ITS ---
PROCEDURE INFORMATION: Exam: XR Thoracic Spine Exam date and time: 04/08/2021 3:19 PM Age: 50 years old Clinical indication: Pain and injury or trauma; Fall; Blunt trauma (contusions or hematomas); Pain in thoracic spine; Additional info: Back pain/fall/muscle spasm TECHNIQUE: Imaging protocol: XR of the thoracic spine. Views: 3 views. COMPARISON: CR XR thoracic spine 3V* [id number] 05/29/2020 2:31 PM FINDINGS: Bones/joints: Normal. No acute fracture. Normal alignment. Soft tissues: Unremarkable. XR/XR thoracic spine 2V [id number] IMPRESSION: No acute findings.
--- NOTE | 2021-04-08 15:09 | XRR_ITS ---
PROCEDURE INFORMATION: Exam: XR Lumbosacral Spine Exam date and time: 04/08/2021 3:19 PM Age: 50 years old Clinical indication: Pain and injury or trauma; Fall; Blunt trauma (contusions or hematomas); Low back pain; Additional info: Back pain/fall/muscle spasm TECHNIQUE: Imaging protocol: XR of the lumbosacral spine. Views: 2 or 3 views. COMPARISON: MRI Lumbar Spine w/o [id number] 09/19/2018 4:26 PM FINDINGS: Bones/joints: No fractures. Mildly exaggerated lumbar lordosis without vertebral subluxation. Mild to moderate arthropathy changes of lower lumbar spine facet joints. Disc heights are fairly well preserved. No focal lytic, aggressive bone lesion. Soft tissues: Unremarkable. XR/XR lumbar spine 2-3V* [id number] IMPRESSION: No acute findings.
--- NOTE | 2021-04-08 15:09 | XRR_ITS ---
PROCEDURE INFORMATION: Exam: XR Left Knee Exam date and time: 04/08/2021 3:19 PM Age: 50 years old Clinical indication: Pain and injury or trauma; Fall; Blunt trauma; Knee; Left; Injury date: 2 days ago; Additional info: Fall/ L knee pain TECHNIQUE: Imaging protocol: XR Left knee. Views: 4 or more views. COMPARISON: No relevant prior studies available. FINDINGS: Bones/joints: Normal. Soft tissues: Normal. XR/XR knee LT 4V [id number] IMPRESSION: No acute findings.
== END 2021-04-08 15:02 | disposition home or self-care (01) ==
PROVIDERS: PCP Internal Medicine; Visit Provider Nurse Practitioner Family
DX: M54.6 Pain in thoracic spine (principal); M54.5 Low back pain; M25.562 Pain in left knee; W19.XXXA Unspecified fall, initial encounter; M62.838 Other muscle spasm
CPT/HCPCS: 72070; 72100; 73564

== ENCOUNTER 2021-06-17 11:36 | Emergency (ER) | payer MEDICARE, MEDICAID, SELFPAY ==
[2021-06-17 11:43] VITALS: RESP 18; BMI 22.3
--- NOTE | 2021-06-17 11:59 | ECG_ITS ---
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 Measurements Intervals [place] Rate: 60 P: 64 WA: 141 QRS: 51 QRSD: 83 T: 45 QT: 422 QTc: 422 Interpretive Statements SINUS RHYTHM POSSIBLE LEFT ATRIAL ENLARGEMENT [-0.1mV P WAVE IN V1/V2] No previous ECG available for comparison Electronically Signed On 06-19-2021 7:44:02 CDT by Rebecca Dickerson M.D. [id number]
--- NOTE | 2021-06-17 12:00 | W.ED.SYNCOPE ---
HPI - Syncope General: Chief Complaint: Syncope Stated Complaint: SYNCOPAL Time Seen by Provider: 06/17/21 11:59 History of Present Illness: HPI narrative: Ms Mandujano Is a 50 year old lady with complex past medical history of ALS, hypothyroidism, COPD, peg tube dependence, and hypertension who presents to the [facility] department due to a syncopal episode. She has been recovering from a pneumonia which was treated with antibiotics and was feeling nearly back to her baseline health when she went to get a blood drop today. She reportedly became unresponsive and staff had difficulty locating a pulse so they began CPR and applied an AED which did not shock. The patient spontaneously woke up by the time EMS arrived . she Reports currently feeling fine. There was no prodrome including specifically denying shortness of breath, chest pain, Lightheadedness, dizziness . She has not had similar episodes in the past. she currently denies any complaints. As such there are no intensity, qualifying, or other significant elements in the history. She cannot think of any provoking, exacerbating, or causative factors. She has been compliant with her medication regimen. Review of Systems General: Reports: 10 or more systems reviewed and unremarkable except in HPI and below Narrative: CONSTITUTIONAL: denies fever, fatigue, weakness EYES - denies pain, denies loss of vision EARS - denies ear issues. NOSE - denies congestion or rhinorrhea. THROAT - denies sore throat or difficulty swallowing. CARDIOVASCULAR - denies chest pain and palpitations RESPIRATORY - denies shortness of breath and cough GASTROINTESTINAL - denies abdominal pain, no nausea vomiting, no changes in bowel habits GENITOURINARY - denies dysuria or urinary frequency MUSCULOSKELETAL- denies deformity or pain SKIN - denies rashes or new changed skin lesions NEUROLOGIC - denies focal weakness or new sensory changes. Baseline debility. Syncope as noted in HPI HEMATOLOGIC/LYMPHATIC - denies easy bruising or lymphadenopathy. [facility] ED PFSH: Medical History ALS (amyotrophic lateral sclerosis) COPD (chronic obstructive pulmonary disease) Hypertension Hypothyroidism Surgical History PEG (percutaneous endoscopic gastrostomy) status Social History Smoking and tobacco status: never smoked Alcohol intake: never Physical Exam Narrative: EXAM NARRATIVE: GENERAL/CONSTITUTIONAL - well-appearing. No acute distress. Eyes - PERRL, no conjunctival injection ENMT - Atraumatic external nose and ears. Moist mucous membranes NECK - supple. trachea midline CARDIOVASCULAR - regular rate and rhythm. Peripheral pulses 2+ and equal RESPIRATORY -clear to auscultation bilaterally. No retractions or accessory muscle use. ABDOMEN/GI - Nontender/Nondistended. No tenderness to percussion or evidence of peritonitis MSK - Extremities without obvious deformity or tenderness to palpation SKIN - Warm, Dry NEURO - alert and appropriately oriented. strength and sensation reportedly baseline without focality appreciated. Moves all extremities equally. PSYCH - Appropriate mood and affect Course ED course: - Monitor, IV access, and vital signs obtained. - The patient was seen and evaluated me at bedside. - Initial evaluation was notable for No acute distress, non toxic appearance. - Labs and imaging were ordered. - IV fluids given - Labs and imaging were obtained and reviewed. - Labs notable for Mild Leukocytosis, TSH elevated the patient has a normal free T4. - Imaging notable for Negative head CT, negative chest X ray. - The results of ED evaluation were discussed with the patient including the uncertain nature of the patient?s event. Given spontaneous recovery and that patient now feels back to baseline the likelihood of a primary cardiac event is low. I engaged in shared decision-making regarding disposition, patient felt comfortable with discharge. I discussed the need for follow up with PCP. Return precautions, follow up plan were discussed with the patient. The patient verbalized understanding and felt safe for discharge. - Upon serial reexamation the patient's condition was improved with fluids. They were discharged without incident or clinical deterioration. Vital Signs: Vital signs: Vital Signs Temperature 97.7 F 06/17/21 16:16 Pulse Rate 67 06/17/21 16:16 Respiratory Rate 16 06/17/21 16:16 Blood Pressure 119/73 06/17/21 16:16 Pulse Oximetry 98 06/17/21 16:16 MDM - Syncope Medical Records: Attestation: I reviewed the patient's medical records. Lab Data: Attestation: I reviewed the patient's lab results. Labs: Lab Results 06/17/21 06/17/21 06/17/21 Range/Units 12:33 12:45 12:45 WBC 12.1 H (4.0-10.0) 10^3/ uL RBC 4.37 (4.1-5.3) 10^6/u L Hgb 12.4 (11.5-15.3) g/dL Hct 39.3 (37.0-47.0) % MCV 89.9 (81-99) fL MCH 28.4 (28.0-34.0) pg MCHC 31.6 (30.0-36.0) g/dL RDW 13.3 (12.1-15.1) % Plt Count 381 (130-400) 10^3/c mm MPV 9.3 (7.4-10.4) fL Neut % (Auto) 75.1 % Lymph % (Auto) 17.6 % [place] % (Auto) 6.0 % Eos % (Auto) 0.6 % Baso % (Auto) 0.4 % Neut # (Auto) 9.06 H (1.8-7.7) 10^3/u L Lymph # (Auto) 2.1 (0.8-4.8) 10^3/u L [place] # (Auto) 0.7 (0.2-0.9) 10^3/u L Eos # (Auto) 0.1 (0.0-0.8) 10^3/u L Baso # (Auto) 0.1 (0.0-0.1) 10^3/u L Nucleated RBC % (a uto) 0 % Nucleated RBCs # 0.0 /100WBC Sodium 134 L (136-145) mmol/L Potassium 4.2 (3.5-5.1) mmol/L Chloride 101 (98-107) mmol/L Carbon Dioxide 23 (22-29) mmol/L Anion Gap 14.2 (5-19) BUN 6 (6-20) mg/dL Creatinine 0.6 (0.5-0.9) mg/dL GFR Calculation 106.3 (90-130) mL/min Glucose 87 (65-115) mg/dL POC Glucose 94 (70-110) mg/dL Calculated Osmolal ity 275 L (285-295) mOsm/k g Calcium 8.5 (8.5-10.5) mg/dL Magnesium 2.1 (1.7-2.3) mg/dL Total Bilirubin 0.3 (0.15-1.2) mg/dL AST 13 (0-32) U/L ALT 10 (0-33) U/L Alkaline Phosphata se 72 (35-105) IU/L Troponin T Gen 5 n g/L (0-10) ng/L Total Protein 6.5 L (6.6-8.7) g/dL Albumin 3.9 (3.5-5.2) g/dL Globulin 2.6 (1.3-4.6) g/dL TSH 11.03 H (0.27-4.20) uIU/ mL Free T4 (0.82-1.77) ng/d L HCG, Qual (Negative) Urine Color (Yellow) Urine Appearance (CLEAR) Urine pH (5-7) Ur Specific Gravit y (1.005-1.030) Urine Protein (Negative) Urine Glucose (UA) (Normal) Urine Ketones (Negative) Urine Blood (Negative) Urine Nitrate (Negative) Urine Bilirubin (Negative) Urine Urobilinogen (Negative) mg/dL Ur Leukocyte Chelsey ase (Negative) 06/17/21 06/17/21 06/17/21 Range/Units 12:45 12:45 13:57 WBC (4.0-10.0) 10^3/ uL RBC (4.1-5.3) 10^6/u L Hgb (11.5-15.3) g/dL Hct (37.0-47.0) % MCV (81-99) fL MCH (28.0-34.0) pg MCHC (30.0-36.0) g/dL RDW (12.1-15.1) % Plt Count (130-400) 10^3/c mm MPV (7.4-10.4) fL Neut % (Auto) % Lymph % (Auto) % [place] % (Auto) % Eos % (Auto) % Baso % (Auto) % Neut # (Auto) (1.8-7.7) 10^3/u L Lymph # (Auto) (0.8-4.8) 10^3/u L [place] # (Auto) (0.2-0.9) 10^3/u L Eos # (Auto) (0.0-0.8) 10^3/u L Baso # (Auto) (0.0-0.1) 10^3/u L Nucleated RBC % (a uto) % Nucleated RBCs # /100WBC Sodium (136-145) mmol/L Potassium (3.5-5.1) mmol/L Chloride (98-107) mmol/L Carbon Dioxide (22-29) mmol/L Anion Gap (5-19) BUN (6-20) mg/dL Creatinine (0.5-0.9) mg/dL GFR Calculation (90-130) mL/min Glucose (65-115) mg/dL POC Glucose 92 (70-110) mg/dL Calculated Osmolal ity (285-295) mOsm/k g Calcium (8.5-10.5) mg/dL Magnesium (1.7-2.3) mg/dL Total Bilirubin (0.15-1.2) mg/dL AST (0-32) U/L ALT (0-33) U/L Alkaline Phosphata se (35-105) IU/L Troponin T Gen 5 n g/L 6 (0-10) ng/L Total Protein (6.6-8.7) g/dL Albumin (3.5-5.2) g/dL Globulin (1.3-4.6) g/dL TSH (0.27-4.20) uIU/ mL Free T4 1.06 (0.82-1.77) ng/d L HCG, Qual (Negative) Urine Color (Yellow) Urine Appearance (CLEAR) Urine pH (5-7) Ur Specific Gravit y (1.005-1.030) Urine Protein (Negative) Urine Glucose (UA) (Normal) Urine Ketones (Negative) Urine Blood (Negative) Urine Nitrate (Negative) Urine Bilirubin (Negative) Urine Urobilinogen (Negative) mg/dL Ur Leukocyte Chelsey ase (Negative) 06/17/21 06/17/21 Range/Units 15:25 15:25 WBC (4.0-10.0) 10^3/ uL RBC (4.1-5.3) 10^6/u L Hgb (11.5-15.3) g/dL Hct (37.0-47.0) % MCV (81-99) fL MCH (28.0-34.0) pg MCHC (30.0-36.0) g/dL RDW (12.1-15.1) % Plt Count (130-400) 10^3/c mm MPV (7.4-10.4) fL Neut % (Auto) % Lymph % (Auto) % [place] % (Auto) % Eos % (Auto) % Baso % (Auto) % Neut # (Auto) (1.8-7.7) 10^3/u L Lymph # (Auto) (0.8-4.8) 10^3/u L [place] # (Auto) (0.2-0.9) 10^3/u L Eos # (Auto) (0.0-0.8) 10^3/u L Baso # (Auto) (0.0-0.1) 10^3/u L Nucleated RBC % (a uto) % Nucleated RBCs # /100WBC Sodium (136-145) mmol/L Potassium (3.5-5.1) mmol/L Chloride (98-107) mmol/L Carbon Dioxide (22-29) mmol/L Anion Gap (5-19) BUN (6-20) mg/dL Creatinine (0.5-0.9) mg/dL GFR Calculation (90-130) mL/min Glucose (65-115) mg/dL POC Glucose (70-110) mg/dL Calculated Osmolal ity (285-295) mOsm/k g Calcium (8.5-10.5) mg/dL Magnesium (1.7-2.3) mg/dL Total Bilirubin (0.15-1.2) mg/dL AST (0-32) U/L ALT (0-33) U/L Alkaline Phosphata se (35-105) IU/L Troponin T Gen 5 n g/L (0-10) ng/L Total Protein (6.6-8.7) g/dL Albumin (3.5-5.2) g/dL Globulin (1.3-4.6) g/dL TSH (0.27-4.20) uIU/ mL Free T4 (0.82-1.77) ng/d L HCG, Qual Negative (Negative) Urine Color Straw (Yellow) Urine Appearance Clear (CLEAR) Urine pH 5 (5-7) Ur Specific Gravit y 1.005 (1.005-1.030) Urine Protein Neg (Negative) Urine Glucose (UA) Norm (Normal) Urine Ketones Negative (Negative) Urine Blood Neg (Negative) Urine Nitrate Negative (Negative) Urine Bilirubin Neg (Negative) Urine Urobilinogen Norm (Negative) mg/dL Ur Leukocyte Chelsey ase Negative (Negative) Imaging Data^: CXR: Attestation: I personally reviewed and interpreted this imaging study as follows: My impression: no pneumothorax or consolidation Radiologist's impression: No significant cardiopulmonary abnormality. EKG Data^: EKG 1: Attestation: I personally reviewed and interpreted this EKG as follows: EKG interpretation date: 06/17/21 Prior EKG tracings: not available for review Interpretation: 12 lead EKG shows a regular sinus rhythm at a rate of 60. MD interval 141 . QRS duration 83. QTC 422. Normal axis. interpretation: sinus rhythm Discharge Plan Discharge Patient Disposition: Home Clinical Impression: Syncope and collapse Condition: Stable Prescriptions: No Action tolterodine 2 mg capsule,extended release 24hr 2 mg PO DAILY RF: 0 Senna Plus 8.6-50 mg Tablet 1 tab-cap PO BID RF: 0 Synthroid 88 mcg tablet 88 mcg PO DAILY RF: 0 docusate sodium 100 mg Capsule 100 mg PO TID RF: 0 Flovent HFA 110 mcg/actuation HFA aerosol inhaler 1 puff INHALATION BID RF: 0 lactulose 10 gram/15 mL Solution 15 ml PO BID RF: 0 diclofenac sodium 1 % gel See Rx Instructions .ROUTE .COMPLEX RF: 0 desvenlafaxine succinate 50 mg tablet extended release 24 hr 50 mg PO DAILY RF: 0 Nuedexta 20-10 mg capsule 1 cap PO BID RF: 0 Tessalon Perles 100 mg capsule 100 mg PO Q6H PRN (Reason: Cough) RF: 0 oxybutynin chloride 5 mg tablet extended release 24hr 5 mg PO DAILY RF: 0 ondansetron HCl 4 mg tablet 4 mg PO Q6H PRN (Reason: nausea/vomiting) RF: 0 omeprazole 40 mg capsule,delayed release(DR/EC) 40 mg PO DAILY@0700 RF: 0 propranolol 10 mg tablet 10 mg PO TID@0700,1300,1900 RF: 0 methocarbamol 750 mg tablet 750 mg PO TID@0700,1300,1900 RF: 0 triamcinolone acetonide 0.1 % Ointment 1 applic TOPICAL BID@0700,1900 RF: 0 ibuprofen 200 mg Tablet 200 mg PO Q6H PRN (Reason: Pain) RF: 0 riluzole 50 mg tablet 50 mg PO Q12H RF: 0 montelukast 10 mg Tablet 10 mg PO DAILY@0700 RF: 0 desvenlafaxine succinate [Pristiq] 100 mg Tablet Extended Release 24 Hr 100 mg PO DAILY@0700 RF: 0 Linzess 145 mcg capsule 145 mcg PO DAILY@07 RF: 0 albuterol sulfate 2.5 mg /3 mL (0.083 %) solution for nebulization 2.5 mg inhalation Q6H RF: 0 cetirizine 10 mg Tablet 10 mg PO DAILY@07 RF: 0 clonazepam 0.5 mg tablet 0.5 mg PO BID@699,190 RF: 0 fluticasone propionate 50 mcg/actuation spray,suspension 50 mcg INTRANASAL BID@699,190 RF: 0 Discharge Orders: Discharge ED (Routine); Ordered 06/17/21 Ordered By: Andrea Aldana Referrals: Trice Hoskins MD [Primary Care Provider] - Discharge Diet: Usual diet Discharge Activity: Resume usual activity Patient Instructions: Syncope (ED) Activity Restrictions/Additional Instructions: Thank you for visiting the emergency department. You were seen and evaluated for syncope and collapse. The exact cause of this is somewhat unclear. This may be related to temporary low blood pressure. Please follow-up with your primary care provider and cardiology. Please return to the emergency department for any symptoms that you are concerned about and feel needs emergency department evaluation. This includes but is not limited to repeat symptoms, chest pain, shortness of breath, headaches, confusion, weakness of any 1 part of the body. Coding Level of Care Code ED In Store Marketing Representative for Carmen Stroud
--- NOTE | 2021-06-17 12:17 | CT_ITS ---
WS: [id number] CT HEAD TECHNIQUE: Noncontrast CT of the head obtained from the skullbase to the vertex. CLINICAL INFORMATION: syncope, ?new onset seizures COMPARISON: CT 2012 DLP: 797.[address] scans at [facility] use at least one of these dose optimization techniques: automat ed exposure control; mA and/or kV adjustment per patient size (includes targeted exams where dose is matched to clinical indication); or iterative reconstruction. FINDINGS: No evidence of intracranial hemorrhage or mass effect. Ventricular system and basal cisterns are talley nt. No Extra-axial fluid collections. No evidence of mass or mass effect. Normal watt-white different iation. Paranasal sinuses and mastoid air cells are well aerated. .Normal visualized soft tissues. CT/CT head wo con* [id number] IMPRESSION: 1. No evidence of intracranial hemorrhage or mass effect. 2. Normal watt-white differentiation. 3. No acute intracranial findings.
--- NOTE | 2021-06-17 12:17 | XRR_ITS ---
PROCEDURE INFORMATION: Exam: XR Chest Exam date and time: 06/17/2021 12:17 PM Age: 50 years old Clinical indication: Other: Syncope; Additional info: Syncope, chest compressions TECHNIQUE: Imaging protocol: XR of the chest. Views: 1 view. COMPARISON: CR XR chest 1V portable [id number] 10/30/2020 1:23 PM FINDINGS: Lungs: Unremarkable. No consolidation. Pleural spaces: Unremarkable. No pleural effusion. No pneumothorax. Heart/Mediastinum: Unremarkable. No cardiomegaly. Bones/joints: Unremarkable. XR/XR chest 1V portable [id number] IMPRESSION: No significant cardiopulmonary abnormality.
[2021-06-17 12:37] LABS: Glucose Point of Care 94 mg/dL (70-110)
[2021-06-17] MEDS: sodium chloride 0.9% 500 ML IV (12:40)
--- NOTE | 2021-06-17 12:52 | PC.NURSE ---
pt daughter jo ann called and updated on pt status and POC
[2021-06-17 12:55] LABS: Basophils # 0.1 10^3/uL (0.0-0.1); Basophils % 0.4 %; Eosinophils # 0.1 10^3/uL (0.0-0.8); Eosinophils % 0.6 %; Hematocrit 39.3 % (37.0-47.0); Hemoglobin 12.4 g/dL (11.5-15.3); Lymphocytes # 2.1 10^3/uL (0.8-4.8); Lymphocytes % 17.6 %; Mean Corpuscular HGB Conc 31.6 g/dL (30.0-36.0); Mean Corpuscular Hemoglobin 28.4 pg (28.0-34.0); Mean Corpuscular Volume 89.9 fL (81-99); Mean Platelet Volume 9.3 fL (7.4-10.4); Monocytes # 0.7 10^3/uL (0.2-0.9); Neutrophils # 9.06 10^3/uL (1.8-7.7); Neutrophils % 75.1 %; Nucleated Red Blood Cells % 0 %; Platelet Count 381 10^3/cmm (130-400); Red Blood Count 4.37 10^6/uL (4.1-5.3); Red Cell Distribution Width 13.3 % (12.1-15.1); White Blood Count 12.1 10^3/uL (4.0-10.0)
[2021-06-17 13:32] VITALS: PULSE 66; RESP 16; O2SAT 99
[2021-06-17 13:32] LABS: Alanine Aminotransferase 10 U/L (0-33); Albumin Level 3.9 g/dL (3.5-5.2); Alkaline Phosphatase 72 IU/L (35-105); Anion Gap 14.2 (5-19); Aspartate Amino Transferase 13 U/L (0-32); Blood Urea Nitrogen 6 mg/dL (6-20); Calcium 8.5 mg/dL (8.5-10.5); Carbon Dioxide 23 mmol/L (22-29); Chloride 101 mmol/L (98-107); Globulin 2.6 g/dL (1.3-4.6); Glomerular Filtration Rate 106.3 mL/min (90-130); Glucose 87 mg/dL (65-115); Magnesium 2.1 mg/dL (1.7-2.3); Osmolality Calculated 275 mOsm/kg (285-295); Potassium 4.2 mmol/L (3.5-5.1); Sodium 134 mmol/L (136-145); Thyroid Stimulating Hormone 11.03 uIU/mL (0.27-4.20); Total Bilirubin 0.3 mg/dL (0.15-1.2); Total Protein 6.5 g/dL (6.6-8.7)
[2021-06-17 14:01] LABS: Glucose Point of Care 92 mg/dL (70-110)
[2021-06-17 14:13] LABS: Free T4 Free Thyroxine 1.06 ng/dL (0.82-1.77)
[2021-06-17 14:45] LABS: Troponin T (5th) Once 6 ng/L (0-10)
[2021-06-17 15:30] VITALS: BP 115/61; BP 115/79; BP 125/74; BP 125/79; PULSE 85; PULSE 98; RESP 16; O2SAT 98
--- NOTE | 2021-06-17 15:55 | PC.NURSE ---
pt daughter called and updated on pt status, and states she will be about 30 min to pick pt up.
[2021-06-17 15:58] LABS: Add Urine Microscopic? NO; Charge for UA Resulting for Rev
[2021-06-17 16:02] LABS: Glucose Urine UA Norm (Normal); HCG Qualitative Urine. Negative (Negative); Protein Urine Neg (Negative); Specific Gravity, Urine 1.005 (1.005-1.030); Urine Appearance Clear (CLEAR); Urine Color Straw (Yellow); pH Urine 5 (5-7)
[2021-06-17 16:03] LABS: Bilirubin Urine Neg (Negative); Blood Urine Neg (Negative); Ketones Urine Negative (Negative); Leukocyte Esterase Urine Negative (Negative); Nitrate Urine Negative (Negative); Urobilinogen Urine Norm (Negative)
[2021-06-17 16:16] VITALS: BP 119/73; PULSE 67; RESP 16; TEMP 36.5; O2SAT 98
--- NOTE | 2021-06-18 14:47 | DCPLANNER ---
loan operations manager had message to schedule a follow up appointment for patient with [facility]. loan operations manager called [facility], spoke with Donya, gave clinic patients information. A follow up appointment was scheduled for , July 03, 2021 at 10:[address] Crain. loan operations manager called and gave family member the appointment information. loan operations manager also had message to schedule an out patient echocardiogram and stress test for patient. loan operations manager faxed signed order to centralized scheduling, who will call patient with appointment information.
--- NOTE | 2021-06-24 13:40 | DCPLANNER ---
Patient has a follow up appointment for an outpatient echo, appointment is scheduled for Wednesday, July 15, 2021 at 7:15. Patient has an out patient stress test scheduled for Wednesday, June 25, 2021 at 11:30. Centralized scheduling will call patient with appointment information for both appointments.
--- NOTE | 2021-07-25 13:45 | DCPLANNER ---
Patient had a follow up appointment scheduled with [facility] for 07.03.21 - patient did attend appointment. Patient had an echo cardiogram scheduled for 07.15.21 - patient did not attend. Patient had a stress test scheduled for 06.25.21 - patient did attend appointment.
== END 2021-06-17 16:46 | disposition home or self-care (01) ==
PROVIDERS: Emergency Provider Emergency Medicine; PCP Internal Medicine
DX: R55 Syncope and collapse (principal); E03.9 Hypothyroidism, unspecified; I10 Essential (primary) hypertension; G12.21 Amyotrophic lateral sclerosis; J44.9 Chronic obstructive pulmonary disease, unspecified; Z93.1 Gastrostomy status
CPT/HCPCS: 36416; 70450; 71045; 80053; 81003; 81025; 82962; 83735; 84439; 84443; 84484; 85025; 93005; 96360; 99284; J7040

== ENCOUNTER 2021-06-25 08:50 | Outpatient (CLI) | payer MEDICARE, MEDICAID, SELFPAY ==
--- NOTE | 2021-06-25 09:08 | NMCV_ITS ---
NM christine perf SPECT r/s* [id number] Megan Mandujano Age: 50 Gender: F : 1970 Exam Date: 06/25/2021 10:07 Ordering Phys: Sindi Vick SHAREPOINT MANAGER Technologist: SEBASTIÁN Mosqueda Exam Location: [facility] Indications: LEFT SIDED CHEST PAIN STRESS TEST Please see separate stress test report in [facility] for full findings IMAGE PROTOCOL Rest/Stress 1 Lexiscan Day Radiopharmaceutical Dose (mCi) Administration Site Administered by Rest: Tc-99m 10.6 IV SEBASTIÁN Guerrero Sestamibi Stress:Tc-99m 32.5 IV SEBASTIÁN Guerrero Sestamibi Rest: 25-Jun-2021 60 Discovery 630 Stress: 25-Jun-2021 30 Discovery 630 0.4mg Lexiscan. Images obtained in supine and prone position. SPECT RESULTS Technical Quality: Excellent Raw Data Analysis: Normal Image Corrections: No attenuation or motion correction applied Summed Stress Score: 1 Summed Rest Score: 4 Summed Difference Score: 0 PERFUSION FINDINGS There is homogenous radiotracer uptake throughout the myocardium FUNCTIONAL RESULTS (calculated via Gated SPECT) Stress Image LV EF (%): 79 Stress EDV (mL):66 TID: 0.98 Stress ESV (mL):14 FUNCTIONAL FINDINGS: There is normal left ventricular systolic function. IMPRESSIONS 1. Normal myocardial perfusion imaging with no evidence of ischemia 2. LV systolic function is normal Jaylen Maddox MD (Electronically Signed) Final Date: 25 June 2021 12:48 S
--- NOTE | 2021-06-25 09:08 | ECG_ITS ---
[facility] Test Date: 2021-06-25 Pat Name: Megan Mandujano Department: Room: Gender: Female Primary Special Educator: : 1970 Requested By: Sindi Vick Order Number: [id number] Winchester MD: Jaylen Maddox M.D. Interpretive Statements NAME OF STUDY: LEXISCAN SESTAMIBI STRESS TEST INDICATION: [Chest Pain, ] Procedure: At the baseline, the blood pressure was 125/71 mmHg with a heart rate of 60 bpm. The electrocardiogram showed normal sinus rhythm, normal axis with normal ST and T's. The Lexiscan was infused over a period of 20 seconds. A total of 0.4 mg of Lexiscan was infused. The stress phase was continued for a total of 5 minutes. Heart rate was at the end of stress phase was 96 bpm and a blood pressure of 110/66 mmHg. The EKG at the peak infusion revealed since normal sinus rhythm with no significant ST-T wave changes. Sestamibi was injected 20 seconds after the Lexiscan infusion. Blood pressure at the end of recovery phase was 120/68 mmHg with a heart rate of 91 bpm. Conclusion: 1. Normal EKG response to Lexiscan infusion 2. No Lexiscan induced chest pain or cardiac arrhythmia. 3. Normal blood pressure and heart rate response. 4. Sestamibi/sestamibi perfusion scan pending; see separate report. Electronically Signed On 07-20-2021 12:30:32 CDT by Jaylen Maddox M.D. [id number]
[2021-06-25 09:30] VITALS: BMI 21.9
[2021-06-25] MEDS: regadenoson 0.4 Mg/5 ml Syringe IVP (10:48)
[2021-06-25] MEDS: ondansetron 2 mg/ML SDV 2 mL 4 MG IVP (10:56)
[2021-06-25 11:07] VITALS: BP 120/68; PULSE 82
== END 2021-06-25 08:51 | disposition home or self-care (01) ==
PROVIDERS: PCP Internal Medicine; Visit Provider Nurse Practitioner Family
DX: R07.89 Other chest pain (principal)
CPT/HCPCS: 78452; 93017; 96374; A9500; J2405; J2785

== ENCOUNTER → 2021-07-17 09:05 | Outpatient (BNVA) | payer MEDICARE, MEDICAID, SELFPAY | PROVIDERS: PCP Internal Medicine; Referring Provider Internal Medicine; Visit Provider Anesthesiology | DX: G89.29 Other chronic pain (principal); G12.21 Amyotrophic lateral sclerosis; M54.9 Dorsalgia, unspecified; M54.2 Cervicalgia; M21.371 Foot drop, right foot; M21.372 Foot drop, left foot; Z76.89 Persons encountering health services in other specified circumstances; Z79.891 Long term (current) use of opiate analgesic | CPT/HCPCS: 99204 ==

== ENCOUNTER 2021-08-19 11:01 | Outpatient (CLI) | payer MEDICARE, MEDICAID, SELFPAY ==
--- NOTE | 2021-08-19 11:20 | MM_ITS ---
WS: [id number] BILATERAL SCREENING DIGITAL MAMMOGRAM WITH CAD HISTORY: SCREENING COMPARISON: 12/21/2017 Bilateral CC and MLO views submitted. Computer aided detection analyzed. Breast composition: The breasts are heterogeneously dense, which may obscure small masses. No suspici ous masses, microcalcifications or architectural distortion. MM/[place] [id number] IMPRESSION: BI-RADS: 1-Negative FOLLOW UP: 1 Year Follow-up
== END 2021-08-19 11:02 | disposition home or self-care (01) ==
LOC: RADSHAW 11:09
PROVIDERS: PCP Internal Medicine; Visit Provider Nurse Practitioner Family
DX: Z12.31 Encounter for screening mammogram for malignant neoplasm of breast (principal)
CPT/HCPCS: 77067

== ENCOUNTER 2021-09-26 14:10 | Outpatient (CLI) | payer MEDICARE, MEDICAID, SELFPAY ==
--- NOTE | 2021-09-26 15:00 | USCV_ITS ---
Megan Mandujano Age: 51 Gender: F : 1970 Exam Date: 09/26/2021 14:38 Ordering Phys: Flavio Crain MD ([email or web address]) Technologist: Exam Location: [facility] [place] Indication: dyspnea, unspecified BP: 132 / 82 HR: 60 Rhythm: Sinus Technical Quality: Good MEASUREMENTS (Male / Female) Normal Values 2D ECHO LV Diastolic Diameter PLAX 4.1 cm 4.2 - 5.9 / 3.9 - 5.3 cm LV Systolic Diameter PLAX 2.5 cm IVS Diastolic Thickness 0.9 cm 0.6 - 1.0 / 0.6 - 0.9 cm IVS Systolic Thickness 1.3 cm LVPW Diastolic Thickness 0.6 cm 0.6 - 1.0 / 0.6 - 0.9 cm LVPW Systolic Thickness 1.1 cm LVOT Diameter 2.0 cm LV Ejection Fraction 2D Teich 71.6 % LV Ejection Fraction MOD 2C 72.9 % LV Ejection Fraction 2C AL 73.5 % LA Diameter 2.1 cm LA Width 3.7 cm LA Height 4.2 cm RA Width 2.0 cm RA Height 3.2 cm Aorta at Sinotubular Diameter 2.6 cm DOPPLER AV Peak Velocity 109.0 cm/s LVOT Peak Velocity 122.0 cm/s AV Area Cont Eq vti 3.6 cm squared AV Area Cont Eq pk 3.6 cm squared MV Peak Velocity 96.0 cm/s MV Area PHT 3.9 cm squared Mitral E to A Ratio 1.7 MV E' Velocity 46.5 cm/s Mitral E to MV E' Ratio 6.3 Mitral E to LV E' Lateral Ratio 6.1 Mitral E to LV E' Septal Ratio 6.5 TR Peak Velocity 78.0 cm/s TR Peak Gradient 2.4 mmHg Right Atrial Pressure 3.0 mmHg Pulmonary Artery Systolic Pressu 5.4 mmHg PV Peak Velocity 60.0 cm/s RV Acceleration Time 0.1 s RV Ejection Time 0.3 s RV AcT/ET 0.5 FINDINGS Left Ventricle Normal left ventricular size and systolic function, EF 69 %. No regional wall motion abnormalities. Right Ventricle The right ventricle is normal in size and function. Right Atrium The right atrium is normal in size. Left Atrium The left atrium is normal in size. Mitral Valve No gross abnormalities noted Aortic Valve No gross abnormalities noted Tricuspid Valve Trace tricuspid valve regurgitation. Normal pulmonary artery pressure Pulmonic Valve No gross abnormalities noted Pericardium Normal pericardium without effusion. Aorta Normal ascending aorta dimension. CONCLUSIONS Normal left ventricular size and systolic function, EF 69 %. No regional wall motion abnormalities. Trace tricuspid valve regurgitation. Normal pulmonary artery pressure There is no pericardial effusion. There are no intracardiac masses. No previous study is available for comparison. Dr Flavio Crain MD FACC (Electronically Signed) Final Date: 26 September 2021 18:31 S
== END 2021-09-26 14:11 | disposition home or self-care (01) ==
LOC: RAD 14:12
PROVIDERS: PCP Internal Medicine; Visit Provider Family Medicine
DX: R55 Syncope and collapse (principal); R06.00 Dyspnea, unspecified; I07.1 Rheumatic tricuspid insufficiency
CPT/HCPCS: 93306

== ENCOUNTER 2021-11-05 06:00 | Outpatient (RCR) | payer MEDICARE, MEDICAID, SELFPAY | END 2021-11-07 23:59 | disposition home or self-care (01) | LOC: SST 06:00 | PROVIDERS: PCP Internal Medicine; Referring Provider Psychiatry & Neurology Neurology; Visit Provider Psychiatry & Neurology Neurology | DX: G12.21 Amyotrophic lateral sclerosis (principal) | CPT/HCPCS: 92607; 92608; 92609 ==

== ENCOUNTER 2021-11-27 10:31 | Outpatient (CLI) | payer MEDICARE, MEDICAID, SELFPAY ==
[2021-11-27 10:45] VITALS: BMI 21.6
[2021-11-27 11:04] VITALS: BP 149/88; PULSE 68; RESP 24; TEMP 36.5; O2SAT 99
[2021-11-27 11:47] VITALS: BP 133/87; PULSE 57; RESP 20; TEMP 36.5; O2SAT 97
[2021-11-27 12:42] VITALS: BP 128/88; PULSE 56; RESP 18; TEMP 36.5; O2SAT 96
--- NOTE | 2021-11-27 15:25 | PC.NURSE ---
Verified allergies with patient. Patient unaware of current medications
== END 2021-11-27 10:32 | disposition home or self-care (01) ==
PROVIDERS: PCP Internal Medicine; Visit Provider Nurse Practitioner Family
DX: U07.1 COVID-19 (principal)
CPT/HCPCS: 96365

== ENCOUNTER 2021-12-09 06:00 | Outpatient (RCR) | payer MEDICARE, MEDICAID, SELFPAY | END 2022-01-05 23:59 | disposition home or self-care (01) | LOC: SST 06:00 | PROVIDERS: PCP Internal Medicine; Referring Provider Psychiatry & Neurology Neurology; Visit Provider Psychiatry & Neurology Neurology | DX: G12.21 Amyotrophic lateral sclerosis (principal) | CPT/HCPCS: 92609 ==

== ENCOUNTER 2022-02-06 06:00 | Outpatient (RCR) | payer MEDICARE, MEDICAID, SELFPAY | END 2022-03-07 23:59 | disposition home or self-care (01) | LOC: SST 06:00 | PROVIDERS: PCP Internal Medicine; Referring Provider Psychiatry & Neurology Neurology; Visit Provider Psychiatry & Neurology Neurology | DX: G12.21 Amyotrophic lateral sclerosis (principal) | CPT/HCPCS: 92609 ==

== ENCOUNTER 2022-05-28 09:57 | Emergency (ER) | payer MEDICARE, MEDICAID, SELFPAY ==
[2022-05-28] VITALS (7 sets, daily range): BP systolic 121–144; BP diastolic 71–88; PULSE 63–77; RESP 15–28; TEMP 36.8; O2SAT 96–99; BMI 20.5
--- NOTE | 2022-05-28 12:07 | ECG_ITS ---
[facility] Test Date: 2022-05-28 Pat Name: Megan Mandujano Department: Room: Gender: Female Cardiovascular Invasive Specialist: : 1970 Requested By: Dave Zepeda Order Number: [id number] Annabella MD: Flavio Crain M.D. Measurements Intervals [place] Plane Rate: 59 P: 65 DE: 149 QRS: 70 QRSD: 86 T: 68 QT: 426 QTc: 424 Interpretive Statements SINUS BRADYCARDIA POSSIBLE LEFT ATRIAL ENLARGEMENT [-0.1mV P-WAVE IN V1/V2] MODERATE ST DEPRESSION [0.05+ mV ST DEPRESSION] Compared to ECG 06/17/2021 12:10:09 ST (T wave) deviation now present Sinus rhythm no longer present Electronically Signed On 05-28-2022 21:16:33 CDT by Flavio Crain M.D. [id number]
--- NOTE | 2022-05-28 12:14 | W.ED.WEAKNES ---
HPI - Weakness General: Chief complaint: Weakness Stated complaint: Vomiting, Weakness, fatigue, hbp, pain all over Time Seen by Provider: 05/28/22 10:26 Source: patient Mode of arrival: ambulatory Limitations: other (ALS) History of Present Illness: With [id number] female history of ALS comes in complaining of vomiting fatigue generally not feeling well. Patient has difficult time localizing because of her ALS. They recently took a trip she got ill while on the trip just generally did not feel well had an episode of syncope which is happened multiple times in the past. Since then she has been very nauseated not had much for input. Mild dysuria decreased urine output some loose stools as well. She denies shortness of breath generalized abdominal discomfort along with this. She usually is seen in [place] by neurology group for her ALS. She is on multiple medications which were reviewed. MD Complaint: generalized weakness Onset (ago): day(s) Duration: constant Location: generalized Quality: aching Relieving factors: none Exacerbating factors: none Associated symptoms: Reports decreased appetite, dysuria, myalgias, nausea and syncope; Denies chest pain, chills, confusion, melena, diaphoresis, easy bruising, fever(s), headache(s), rash, short of breath or vomiting Review of Systems Const: Reports: fatigue and malaise; Denies: fever(s), chills or diaphoresis ENMT: Denies: throat pain, ear or mastoid pain, nasal discharge or nasal congestion Card: Reports: syncope; Denies: chest pain Resp: Denies: dyspnea, productive cough or non-productive cough GI: Reports: abdominal pain and nausea; Denies: vomiting, hematemesis or melena : Reports: difficulty voiding and dysuria; Denies: flank pain, urinary frequency or urinary urgency Skin/Breast: Denies: rash or pruritus Neuro: Denies: headache(s) or confusion Tay/Lymph: Denies: easy bruising PFSH ED PFSH: Medical History ALS (amyotrophic lateral sclerosis) Chronic back pain Chronic neck pain COPD (chronic obstructive pulmonary disease) Encounter before starting medication Encounter for opiate analgesic use agreement Graves disease History of radioactive iodine thyroid ablation Hypertension Hypothyroidism Shortness of breath Surgical History History of appendectomy History of tonsillectomy History of tubal ligation PEG (percutaneous endoscopic gastrostomy) status Family History Father CAD (coronary artery disease) Diabetes Lung disease Mother CAD (coronary artery disease) Family/Other CAD (coronary artery disease) Diabetes Lung disease Stroke Suicide Grandfather CAD (coronary artery disease) Son CAD (coronary artery disease) Grandmother Stroke Denies family history of Clotting disorder Dementia Chronic kidney disease (CKD) Anesthesia complication Bleeding disorder Cancer Social History Smoking and tobacco status: never smoked Second hand smoke exposure: Yes Alcohol intake: never History of recent travel: No Physical Exam Const: GENERAL APPEARANCE: cooperative ORIENTATION/CONSCIOUSNESS: Yes awake, Yes oriented to person, Yes oriented to place and Yes oriented to time HENMT: COMMON NORMALS: normocephalic, atraumatic and hearing grossly normal bilaterally HEAD & SCALP: normocephalic and atraumatic Neck/C-Spine: COMMON NORMALS: no JVD Resp: COMMON NORMALS: normal respiratory effort, No retractions, No use of accessory muscles and clear to auscultation bilaterally AUSCULTATION: clear to auscultation bilaterally Cardio: COMMON NORMALS: no JVD, regular rate, regular rhythm and No murmurs present (Cardio) RATE: regular rate RHYTHM: regular rhythm GI: COMMON NORMALS: No hepatosplenomegaly present AUSCULTATION: Yes normoactive bowel sounds PALPATION: Yes Tenderness to palpation present (GI) (Diffuse), No Guarding due to palpation present (GI) and Yes No hepatosplenomegaly present Extremity: COMMON NORMALS: normal to inspection, capillary refill normal, no clubbing, cyanosis or edema, no calf tenderness and no pedal edema Neuro: SENSORIUM/ORIENTATION: Yes oriented to person, Yes oriented to place and Yes oriented to time Skin: COMMON NORMALS: no rashes or lesions noted GENERAL SKIN EXAM: no rashes or lesions noted Course Vital Signs: Vital signs: Vital Signs Temperature 98.2 F 05/28/22 10:08 Pulse Rate 73 05/28/22 15:30 Respiratory Rate 16 05/28/22 15:30 Blood Pressure 134/78 05/28/22 15:30 Pulse Oximetry 98 05/28/22 15:30 MDM - Weakness Medical Decision Making Patient feeling much better after fluids. She did have little bit of a headache we gave her some Toradol this also helped. Her nausea is much improved we will discharge home with Zofran to use. Follow-up as needed Medical Records I reviewed the patient's medical records. Lab Data I reviewed the patient's lab results. : 05/28/22 14:22 05/28/22 14:22 Radiology Impressions Abdomen/Pelvis CT 05/28/22 12:28 IMPRESSION: 1. Slightly hydropic fluid distended gallbladder. No gallbladder wall thickening or pericholecystic fluid. This can be further evaluated with ultrasound. 2. Dilated common bile duct measuring 9 mm with mild intrahepatic biliary ductal dilatation. This can be followed up with MRCP if clinically indicated. No visualized common bile duct calculi. 3. Enhancement with rugal thickening involving the distal stomach extending into the proximal duodenum compatible with gastroduodenitis. 4. Mild diffuse fatty infiltration of the liver. 5. No hydronephrosis in either kidney. 6. Pancolonic constipation worse in the sigmoid colon with dense sigmoid constipation. 7. Prior appendectomy. Notified Dave Mead DO at 05/28/2022 1:51 PM. Laboratory Results WBC 5.8 10^3/uL (4.0-10.0) 05/28/22 14: RBC 4.33 10^6/uL (4.1-5.3) 05/28/22 14: Hgb 13.2 g/dL (11.5-15.3) 05/28/22 14: Hct 39.7 % (37.0-47.0) 05/28/22 14: MCV 91.7 fl (81-99) 05/28/22 14: MCH 30.5 pg (28.0-34.0) 05/28/22 14: MCHC 33.2 g/dL (30.0-36.0) 05/28/22 14: RDW 13.3 % (12.1-15.1) 05/28/22 14:22 Plt Count 206 10^3/cmm (130-400) 05/28/22 14:22 MPV 9.6 fL (7.4-10.4) 05/28/22 14:22 Neut % (Auto) 63.4 % 05/28/22 14:22 Lymph % (Auto) 29.8 % 05/28/22 14:22 [place] % (Auto) 5.2 % 05/28/22 14:22 Eos % (Auto) 1.2 % 05/28/22 14:22 Baso % (Auto) 0.2 % 05/28/22 14:22 Neut # (Auto) 3.67 10^3/uL (1.8-7.7) 05/28/22 14:22 Lymph # (Auto) 1.7 10^3/uL (0.8-4.8) 05/28/22 14:22 [place] # (Auto) 0.3 10^3/uL (0.2-0.9) 05/28/22 14:22 Eos # (Auto) 0.1 10^3/uL (0.0-0.8) 05/28/22 14:22 Baso # (Auto) 0.0 10^3/uL (0.0-0.1) 05/28/22 14: Nucleated RBC % (auto) 0 % 05/28/22 14: Nucleated RBCs # 0.0 /100WBC 05/28/22 14:22 Sodium 139 mmol/L (136-145) 05/28/22 14:22 Potassium 5.5 mmol/L (3.5-5.1) H 05/28/22 14:22 Chloride 104 mmol/L (98-107) 05/28/22 14:22 Carbon Dioxide 21 mmol/L (22-29) L 05/28/22 14:22 Anion Gap 19.5 (5-19) H 05/28/22 14:22 BUN 7 mg/dL (6-20) 05/28/22 14:22 Creatinine 0.6 mg/dL (0.5-0.9) 05/28/22 14:22 GFR Calculation 105.8 mL/min (90-130) 05/28/22 14:22 Glucose 86 mg/dL (65-115) 05/28/22 14:22 Calculated Osmolality 285 mOsm/kg (285-295) 05/28/22 14:22 Calcium 8.3 mg/dL (8.5-10.5) L 05/28/22 14:22 Total Bilirubin 0.3 mg/dL (0.15-1.2) 05/28/22 14:22 AST 18 U/L (0-32) 05/28/22 14:22 ALT 15 U/L (0-33) 05/28/22 14:22 Alkaline Phosphatase 55 IU/L (35-105) 05/28/22 14:22 Total Protein 6.6 g/dL (6.6-8.7) 05/28/22 14:22 Albumin 4.4 g/dL (3.5-5.2) 05/28/22 14:22 Globulin 2.2 g/dL (1.3-4.6) 05/28/22 14:22 Lipase 17 U/L (13-60) 05/28/22 14:22 Discharge Plan Discharge Patient Disposition: Home Clinical Impression: Dehydration, ALS (amyotrophic lateral sclerosis), Hyperkalemia Condition: Stable Prescriptions: New ondansetron HCl 4 mg tablet 4 mg PO Q6H PRN (Reason: nausea and vomiting) Qty: 20 0RF No Action levothyroxine 100 mcg capsule 100 mcg PO DAILY 0RF propranolol 20 mg tablet 20 mg PO TID@0700,1300,1900 Qty: 270 3RF docusate sodium 100 mg Capsule 100 mg PO TID 0RF fluticasone propionate [Flovent HFA] 110 mcg/actuation HFA aerosol inhaler 1 puff INHALATION BID 0RF diclofenac sodium 1 % gel 1 ea topical Q6H PRN (Reason: Skin Irritation) 0RF Nuedexta 20-10 mg capsule 1 cap PO BID 0RF tolterodine 2 mg capsule,extended release 24hr 4 mg PO DAILY 0RF ondansetron HCl 4 mg tablet 4 mg PO Q6H PRN (Reason: nausea/vomiting) 0RF omeprazole 40 mg capsule,delayed release(DR/EC) 40 mg PO DAILY@0700 0RF riluzole 50 mg tablet 50 mg PO Q12H 0RF montelukast 10 mg Tablet 10 mg PO DAILY@0700 0RF desvenlafaxine succinate [Pristiq] 100 mg Tablet Extended Release 24 Hr 100 mg PO DAILY@0700 0RF albuterol sulfate 2.5 mg /3 mL (0.083 %) solution for nebulization 2.5 mg inhalation Q6H PRN (Reason: Shortness Of Breath) 0RF clonazepam 0.5 mg tablet 0.5 mg PO QID 0RF methocarbamol 750 mg tablet 750 mg PO TID@0700,1300,1900 0RF ibuprofen 200 mg tablet 600 mg PO Q6H PRN (Reason: Pain) 0RF Linzess 290 mcg Capsule 290 mcg PO DAILY 0RF Nurtec ODT 75 mg Tablet,Disintegrating 75 mg PO DAILY PRN (Reason: Migraine Headache) 0RF hydrocodone-acetaminophen 10-325 mg tablet 1 tab PO TID 0RF Vitamin D3 25 mcg (1,000 unit) Tablet 25 mcg PO DAILY 0RF Restasis MultiDose 0.05 % drops 1 drp ophthalmic (eye) DAILY 0RF Discharge Orders: Discharge ED (Routine); Ordered 05/28/22 Ordered By: Dave Mead Referrals: Trice Hoskins MD [Primary Care Provider] - Discharge Diet: Advance as tolerated Discharge Activity: Increase activity as tolerated Patient Instructions: Opioid Safety Activity Restrictions/Additional Instructions: Follow-up with your doctor within the next week. Coding Level of Care Code ED Frog Farmer for Chg Fwd Exam Comprehensive
--- NOTE | 2022-05-28 12:28 | CT_ITS ---
WS: [id number] CT ABDOMEN PELVIS TECHNIQUE: Contrast-enhanced CT of the abdomen and pelvis with coronal and sagittal reformatted image s. CLINICAL INFORMATION: abd pain COMPARISON: None. DLP: 871.[address] scans at [facility] use at least one of these dose optimization techniques: automated e xposure control; mA and/or kV adjustment per patient size (includes targeted exams where dose is matc hed to clinical indication); or iterative reconstruction. FINDINGS: Lung bases are well aerated. Mild diffuse fatty infiltration liver. Slightly hydropic fluid distended gallbladder. No gallbladder wall thickening or pericholecystic fluid. Dilated common bile duct measu ring 9 mm. Mild intrahepatic biliary ductal dilatation. No visualized common bile duct calculi. This can be further evaluated MRCP if clinically indicated. Evidence of gastroduodenitis with gastric ruga l thickening and enhancement. Normal spleen. Normal GE junction. Adrenal glands are normal. Normal renal parenchymal enhancement. N o hydronephrosis. Celiac and SMA are patent. Normal caliber abdominal aorta. Diffuse pancolonic constipation. Dense sigmoid constipation. No hydronephrosis in either kidney. No o bstructing renal or ureteral calculi. Mild lumbar curve. CT/CT abdomen pelvis w con* [id number] IMPRESSION: 1. Slightly hydropic fluid distended gallbladder. No gallbladder wall thickeni ng or pericholecystic fluid. This can be further evaluated with ultrasound. 2. Dilated common bile duct measuring 9 mm with mild intrahepatic biliary duct al dilatation. This can be followed up with MRCP if clinically indicated. No vi sualized common bile duct calculi. 3. Enhancement with rugal thickening involving the distal stomach extending in to the proximal duodenum compatible with gastroduodenitis. 4. Mild diffuse fatty infiltration of the liver. 5. No hydronephrosis in either kidney. 6. Pancolonic constipation worse in the sigmoid colon with dense sigmoid const ipation. 7. Prior appendectomy. Notified Dave Mead DO at 05/28/2022 1:51 PM.
[2022-05-28] MEDS: ondansetron 2 mg/ML SDV 2 mL 4 MG IVP (12:35)
[2022-05-28] MEDS: sodium chloride 0.9% 1,000 ML 999 ML IV ×2 (12:35→15:09)
--- NOTE | 2022-05-28 13:00 | PC.NURSE ---
PT PLACED ON CONTINUOUS NIBP, SPO2, AND CM
[2022-05-28] MEDS: iohexol 350 mg/mL 100 mL Btl IV (13:16)
[2022-05-28 14:40] LABS: Basophils % 0.2 %; Eosinophils # 0.1 10^3/uL (0.0-0.8); Eosinophils % 1.2 %; Hematocrit 39.7 % (37.0-47.0); Hemoglobin 13.2 g/dL (11.5-15.3); Lymphocytes # 1.7 10^3/uL (0.8-4.8); Lymphocytes % 29.8 %; Mean Corpuscular HGB Conc 33.2 g/dL (30.0-36.0); Mean Corpuscular Hemoglobin 30.5 pg (28.0-34.0); Mean Corpuscular Volume 91.7 fl (81-99); Mean Platelet Volume 9.6 fL (7.4-10.4); Monocytes # 0.3 10^3/uL (0.2-0.9); Monocytes % 5.2 %; Neutrophils # 3.67 10^3/uL (1.8-7.7); Neutrophils % 63.4 %; Nucleated Red Blood Cells % 0 %; Platelet Count 206 10^3/cmm (130-400); Red Blood Count 4.33 10^6/uL (4.1-5.3); Red Cell Distribution Width 13.3 % (12.1-15.1); White Blood Count 5.8 10^3/uL (4.0-10.0)
[2022-05-28 14:42] LABS: Chloride 104 mmol/L (98-107); Sodium 139 mmol/L (136-145)
[2022-05-28 15:01] LABS: Alanine Aminotransferase 15 U/L (0-33); Albumin Level 4.4 g/dL (3.5-5.2); Alkaline Phosphatase 55 IU/L (35-105); Aspartate Amino Transferase 18 U/L (0-32); Blood Urea Nitrogen 7 mg/dL (6-20); Globulin 2.2 g/dL (1.3-4.6); Glomerular Filtration Rate 105.8 mL/min (90-130); Glucose 86 mg/dL (65-115); Lipase 17 U/L (13-60); Osmolality Calculated 285 mOsm/kg (285-295); Total Bilirubin 0.3 mg/dL (0.15-1.2); Total Protein 6.6 g/dL (6.6-8.7)
[2022-05-28 15:09] LABS: Anion Gap 19.5 (5-19); Calcium 8.3 mg/dL (8.5-10.5); Carbon Dioxide 21 mmol/L (22-29); Potassium 5.5 mmol/L (3.5-5.1)
[2022-05-28 15:25] LABS: Add Urine Microscopic? NO; Charge for UA Resulting for Rev
[2022-05-28] MEDS: ketorolac 30 mg/mL INJ IVP (15:48)
[2022-05-28 17:09] LABS: Bilirubin Urine Neg (Negative); Blood Urine Neg (Negative); Glucose Urine UA Norm (Normal); Ketones Urine Negative (Negative); Leukocyte Esterase Urine Negative (Negative); Nitrate Urine Negative (Negative); Protein Urine Neg (Negative); Specific Gravity, Urine 1.005 (1.005-1.030); Urine Appearance Clear (CLEAR); Urine Color Colorless (Yellow); Urobilinogen Urine Norm (Negative); pH Urine 5 (5-7)
== END 2022-05-28 17:00 | disposition home or self-care (01) ==
PROVIDERS: Physician Assistant; Emergency Provider Family Medicine; PCP Internal Medicine
DX: G12.21 Amyotrophic lateral sclerosis (principal); E87.5 Hyperkalemia; E86.0 Dehydration; J44.9 Chronic obstructive pulmonary disease, unspecified; I10 Essential (primary) hypertension; Z77.22 Contact with and (suspected) exposure to environmental tobacco smoke (acute) (chronic)
CPT/HCPCS: 36415; 74177; 80053; 81003; 83690; 85025; 93005; 96361; 96374; 96375; 99285; J1885; J2405; J7030; Q9967

== ENCOUNTER → 2022-06-03 08:45 | Outpatient (BNVA) | payer MEDICARE, MEDICAID, SELFPAY | PROVIDERS: PCP Internal Medicine; Visit Provider Nurse Practitioner Family | DX: R07.89 Other chest pain (principal); R55 Syncope and collapse; R00.1 Bradycardia, unspecified | CPT/HCPCS: 93005; 93229; 99214 ==

== ENCOUNTER → 2022-06-16 13:12 | Outpatient (BNVA) | payer MEDICARE, MEDICAID, SELFPAY | PROVIDERS: PCP Internal Medicine; Visit Provider Nurse Practitioner Family | DX: R00.1 Bradycardia, unspecified (principal) | CPT/HCPCS: 99213 ==

== ENCOUNTER 2022-06-26 11:49 | Emergency (ER) | payer MEDICARE, MEDICAID, SELFPAY ==
[2022-06-26 11:57] VITALS: BP 147/91; PULSE 99; RESP 18; TEMP 36.6; O2SAT 93; BMI 24.9
--- NOTE | 2022-06-26 12:21 | ECG_ITS ---
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 Measurements Intervals [place] Rate: 77 P: 122 MA: 125 QRS: 122 QRSD: 85 T: 128 QT: 383 QTc: 435 Interpretive Statements SINUS RHYTHM ARM LEADS REVERSED [INVERTED P AND QRS IN I] Compared to ECG 05/28/2022 12:46:13 Sinus bradycardia no longer present ST (T wave) deviation no longer present Electronically Signed On 06-26-2022 17:45:01 CDT by Jaylen Maddox M.D. [id number] f
--- NOTE | 2022-06-26 12:26 | XRR_ITS ---
PROCEDURE INFORMATION: Exam: XR Chest Exam date and time: 06/26/2022 12:32 PM Age: 51 years old Clinical indication: Other: Syncope TECHNIQUE: Imaging protocol: Radiologic exam of the chest. Views: 1 view. COMPARISON: CR XR chest 1V portable [id number] 06/17/2021 12:18 PM FINDINGS: Lungs: Unremarkable. No consolidation. Pleural spaces: Unremarkable. No pleural effusion. No pneumothorax. Heart/Mediastinum: Unremarkable. No cardiomegaly. Bones/joints: Unremarkable. XR/XR chest 1V portable [id number] IMPRESSION: No acute findings.
--- NOTE | 2022-06-26 12:28 | W.ED.SYNCOPE ---
HPI - Syncope General: Chief Complaint: Syncope Stated Complaint: SYNCOPE Time Seen by Provider: 06/26/22 11:56 Source: patient and family Mode of arrival: EMS Limitations: no limitations History of Present Illness: This patient was transported to the emergency department by EMS. History is obtained both from the patient as well as her family who are present. The latter provide me history they obtained secondhand from observers at the time of the episode. Patient states that she felt fine this morning and walked across the parking lot of her apartment complex to her apartment complex office. She states she sat down and was talking with the propagation worker and noticed that her heart seemed to be beating rapidly and that she seemed to be lightheaded and she felt like her vision was tunneling in. She states the next thing she remembers is that she woke up in route to the hospital. She states she has had similar occurrences in the past. Secondary history from bystanders states that she was observed to become unresponsive but did not require CPR or other interventions because of lost pulse or cessation of breathing. There was no seizure activity observed. The patient states that she had no headache or other prodrome other than what was described above. She does have a history of ALS and uses a cane for ambulation. She is currently under the care of cardiology for evaluation of arrhythmia and potential presyncope. She was previously taken propranolol but was weaned off of that approximately 2 weeks ago. Patient states she is noted her blood pressures been higher than usual recently. She denies any injury from her episode this morning and there is no history that she actually fell out of the chair or suffered any trauma. She ate and drank normally. She has had loose stools over the past week but no blood in her stools or other concerns. She is not recently been on antibiotics and no one else is ill at home has had no change in her diet. She states she has a history of anxiety but did not feel anxious or stressed prior to the onset of her symptoms. She has been taking all her usual medications. MD complaint: loss of consciousness Prodromal symptoms: vision changes, lightheaded and heart racing Context: at rest Injuries sustained associated with event: none Associated symptoms: Deny abdominal pain, fever(s), headache(s) or nausea History: previous syncopal episode Review of Systems Const: Denies: fever(s) or chills Eyes: Denies: change in vision ENMT: Denies: throat pain, odynophagia, change in hearing or nasal congestion Card: Reports: palpitations and syncope; Denies: dyspnea on exertion or orthopnea Resp: Denies: dyspnea, productive cough or non-productive cough GI: Reports: diarrhea; Denies: abdominal pain, nausea or vomiting : Denies: flank pain, difficulty voiding, dysuria, urinary frequency, urinary urgency, urinary hesitancy or dribbling Musc: Denies: neck pain, back pain, extremity pain or extremity swelling Skin/Breast: Denies: rash or pruritus Neuro: Reports: lack of coordination (Chronic) and difficulty walking (She is a cane when she feels strong enough to ambulate in a wheelchair othe); Denies: headache(s), numbness in extremities or seizure-like activity Psych: Reports: anxiety; Denies: sleeping less or sleeping more Endo: Denies: polyuria or polydipsia PFSH ED PFSH: Medical History ALS (amyotrophic lateral sclerosis) Chronic back pain Chronic neck pain COPD (chronic obstructive pulmonary disease) Encounter before starting medication Encounter for opiate analgesic use agreement Graves disease History of radioactive iodine thyroid ablation Hypertension Hypothyroidism Shortness of breath Surgical History History of appendectomy History of tonsillectomy History of tubal ligation PEG (percutaneous endoscopic gastrostomy) status Family History Father CAD (coronary artery disease) Diabetes Lung disease Mother CAD (coronary artery disease) Family/Other CAD (coronary artery disease) Diabetes Lung disease Stroke Suicide Grandfather CAD (coronary artery disease) Son CAD (coronary artery disease) Grandmother Stroke Denies family history of Clotting disorder Dementia Chronic kidney disease (CKD) Anesthesia complication Bleeding disorder Cancer Social History Smoking and tobacco status: never smoked Second hand smoke exposure: Yes Alcohol intake: never History of recent travel: No Physical Exam Narrative: EXAM NARRATIVE: She is alert answers questions in a goal-directed fashion. Her speech is somewhat affected but she is able to answer questions accurately. Const: COMMON NORMALS: no acute distress, patient oriented x3 and alert GENERAL APPEARANCE: cooperative and comfortable HENMT: COMMON NORMALS: normocephalic, atraumatic, Normal nasal mucous membranes and turbinates present, moist oral mucous membranes and oropharynx normal HEAD & SCALP: normocephalic and atraumatic NOSE: Normal nasal mucous membranes and turbinates present Eye: COMMON NORMALS: Equal, round and reactive pupils present, EOMs intact bilaterally and conjunctivae normal CONJUNCTIVA: Yes conjunctivae normal PUPIL: Yes Equal, round and reactive pupils present Neck/C-Spine: COMMON NORMALS: full ROM, no lymphadenopathy, supple, no meningeal signs, Thyroid normal and No carotid bruits THYROID: Thyroid normal CERVICAL SPINE: Yes cervical ROM normal, No Cervical spine tenderness and No step off deformity Chest: COMMONS NORMALS: normal inspection of the chest Resp: COMMON NORMALS: normal respiratory effort, No retractions, No use of accessory muscles and clear to auscultation bilaterally AUSCULTATION: clear to auscultation bilaterally Cardio: COMMON NORMALS: regular rate, regular rhythm, No murmurs present (Cardio) and Peripheral pulses 2+ throughout RATE: regular rate RHYTHM: regular rhythm PERIPHERAL PULSES: Peripheral pulses 2+ throughout GI: COMMON NORMALS: Normal to inspection, nondistended, normoactive bowel sounds present, Soft to palpation, non-tender and no masses PALPATION: Yes Soft to palpation : COMMON NORMALS: Yes no CVA tenderness BLADDER/KIDNEY EXAM: Yes no CVA tenderness Back/Pelvis: COMMON NORMALS: no CVA tenderness, thoracic and lumbar spine normal to inspection, no thoracic nor lumbar tenderness and thoraco-lumbar ROM normal Extremity: COMMON NORMALS: normal to inspection, full ROM, capillary refill normal, no joint enlargement, no calf tenderness and no pedal edema Neuro: COMMON NORMALS: patient oriented x3, moves all extremities, no focal motor deficits and no sensory deficits noted SENSORIUM/ORIENTATION: Yes alert MENINGEAL SIGNS: Yes no meningeal signs SPEECH: abnormal speech MOTOR EXAM: Pronator motor function present (Symmetrical weakness of lower extremities.) Psych: COMMON NORMALS: mental status grossly normal and Normal thought process present THOUGHT PROCESS: Normal thought process present Skin: COMMON NORMALS: no rashes or lesions noted, no wounds and turgor normal GENERAL SKIN EXAM: no rashes or lesions noted and turgor normal Course Reevaluation(s): Reevaluation #1: She states she feels at her baseline. She denies any chest pain, palpitations, shortness of breath or other constitutional complaints at this time.Prolonged monitoring is failed to reveal any significant changes in her rhythm while she was in the emergency department. Again comparing twelve-lead presented via EMS at her arrival compared with her current twelve-lead as well as prior twelve-lead reveal no concerning findings to suggest any potential proarrhythmic findings such as prolonged QT, shortened PA, other concerning findings. Repeat evaluation reveals to be alert, no new or focal findings. She is interactive and goal-directed in her speech. Orthostatic vital signs from nursing notes were reviewed and are acceptable. Showed no signs of orthostatic static vital sign changes Time: 14:36 Vital Signs: Vital signs: Vital Signs Temperature 97.9 F 06/26/22 11:57 Pulse Rate 91 06/26/22 14:15 Respiratory Rate 16 06/26/22 12:55 Blood Pressure 140/84 06/26/22 14:15 Pulse Oximetry 95 06/26/22 12:55 Oxygen Delivery Me thod 06/26/22 12:55 MDM - Syncope Medical Decision Making Patient presented to the emergency department with a history of syncope. Her evaluation today was nonfocal. No history to suggest seizure, central nervous system event, arrhythmia, etc. at this time. She did not suffer injury. She is not anemic does not display any signs of volume depletion, orthostatic changes etc. Essentially her emergency department evaluation does not discern a ongoing emergency medical condition to explain her syncopal episode today. She has been evaluated by cardiology in the past to include prolonged ambulatory monitoring without any significant dysrhythmia. She has a follow-up this coming Wednesday as well. Certainly there may have been a perturbation in her vital signs transiently due to her ALS or other condition however I do not have any findings today to suggest that prolonged observation or admission is warranted. She voiced understanding of our work-up and its limitations and was appreciative of care. She is stable to be discharged to close follow-up with return precautions. Medical Records I reviewed the patient's medical records. Lab Data I reviewed the patient's lab results. : 06/26/22 12:15 06/26/22 12:58 Radiology Impressions Chest X-Ray 06/26/22 12:26 IMPRESSION: No acute findings. Laboratory Results WBC 7.5 10^3/uL (4.0-10.0) 06/26/22 12:15 RBC 4.11 10^6/uL (4.1-5.3) 06/26/22 12:15 Hgb 12.5 g/dL (11.5-15.3) 06/26/22 12:15 Hct 37.6 % (37.0-47.0) 06/26/22 12:15 MCV 91.5 fl (81-99) 06/26/22 12:15 MCH 30.4 pg (28.0-34.0) 06/26/22 12:15 MCHC 33.2 g/dL (30.0-36.0) 06/26/22 12:15 RDW 13.3 % (12.1-15.1) 06/26/22 12:15 Plt Count 258 10^3/cmm (130-400) 06/26/22 12:15 MPV 10.0 fL (7.4-10.4) 06/26/22 12:15 Neut % (Auto) 88.2 % 06/26/22 12:15 Lymph % (Auto) 8.1 % 06/26/22 12:15 Posey % (Auto) 2.4 % 06/26/22 12:15 Eos % (Auto) 0.1 % 06/26/22 12:15 Baso % (Auto) 0.1 % 06/26/22 12:15 Neut # (Auto) 6.63 10^3/uL (1.8-7.7) 06/26/22 12:15 Lymph # (Auto) 0.6 10^3/uL (0.8-4.8) L 06/26/22 12:15 Posey # (Auto) 0.2 10^3/uL (0.2-0.9) 06/26/22 12:15 Eos # (Auto) 0.0 10^3/uL (0.0-0.8) 06/26/22 12:15 Baso # (Auto) 0.0 10^3/uL (0.0-0.1) 06/26/22 12:15 Nucleated RBC % (auto) 0 % 06/26/22 12:15 Nucleated RBCs # 0.0 /100WBC 06/26/22 12:15 Sodium 140 mmol/L (136-145) 06/26/22 12:58 Potassium 4.0 mmol/L (3.5-5.1) 06/26/22 12:58 Chloride 104 mmol/L (98-107) 06/26/22 12:58 Carbon Dioxide 25 mmol/L (22-29) 06/26/22 12:58 Anion Gap 15.0 (5-19) 06/26/22 12:58 BUN 5 mg/dL (6-20) L 06/26/22 12:58 Creatinine 0.6 mg/dL (0.5-0.9) 06/26/22 12:58 GFR Calculation 105.8 mL/min (90-130) 06/26/22 12:58 Glucose 116 mg/dL (65-115) H 06/26/22 12:58 Calculated Osmolality 288 mOsm/kg (285-295) 06/26/22 12:58 Calcium 8.9 mg/dL (8.5-10.5) 06/26/22 12:58 Total Bilirubin 0.2 mg/dL (0.15-1.2) 06/26/22 12:58 AST 17 U/L (0-32) 06/26/22 12:58 ALT 19 U/L (0-33) 06/26/22 12:58 Alkaline Phosphatase 58 U/L (35-105) 06/26/22 12:58 Total Protein 6.2 g/dL (6.6-8.7) L 06/26/22 12:58 Albumin 4.0 g/dL (3.5-5.2) 06/26/22 12:58 Globulin 2.2 g/dL (1.3-4.6) 06/26/22 12:58 EKG Data EKG 1: I personally reviewed and interpreted this EKG as follows: EKG interpretation time: 12:38 Computer Generated Interpretation: She has a ventricular rate of 77 bpm. Normal intervals, normal axis. No evidence of preexcitation syndromes, Brugada's etc. She has no acute ST-T wave changes. Discharge Plan Discharge Patient Disposition: Home Clinical Impression: Syncope, ALS (amyotrophic lateral sclerosis) Condition: Stable Prescriptions: No Action levothyroxine 100 mcg capsule 100 mcg PO DAILY docusate sodium 100 mg Capsule 100 mg PO TID fluticasone propionate [Flovent HFA] 110 mcg/actuation HFA aerosol inhaler 1 puff INHALATION BID diclofenac sodium 1 % gel 1 ea topical Q6H PRN (Reason: Skin Irritation) Nuedexta 20-10 mg capsule 1 cap PO BID tolterodine 2 mg capsule,extended release 24hr 4 mg PO DAILY ondansetron HCl 4 mg tablet 4 mg PO Q6H PRN (Reason: nausea/vomiting) omeprazole 40 mg capsule,delayed release(DR/EC) 40 mg PO DAILY@0700 riluzole 50 mg tablet 50 mg PO Q12H montelukast 10 mg Tablet 10 mg PO DAILY@0700 desvenlafaxine succinate [Pristiq] 100 mg Tablet Extended Release 24 Hr 100 mg PO DAILY@0700 albuterol sulfate 2.5 mg /3 mL (0.083 %) solution for nebulization 2.5 mg inhalation Q6H PRN (Reason: Shortness Of Breath) clonazepam 0.5 mg tablet 0.5 mg PO QID methocarbamol 750 mg tablet 750 mg PO TID@0700,1300,1900 ibuprofen 200 mg tablet 600 mg PO Q6H PRN (Reason: Pain) Linzess 290 mcg Capsule 290 mcg PO DAILY Nurtec ODT 75 mg Tablet,Disintegrating 75 mg PO DAILY PRN (Reason: Migraine Headache) hydrocodone-acetaminophen 10-325 mg tablet 1 tab PO TID Vitamin D3 25 mcg (1,000 unit) Tablet 25 mcg PO DAILY Restasis MultiDose 0.05 % drops 1 drp ophthalmic (eye) DAILY ondansetron HCl 4 mg tablet 4 mg PO Q6H PRN (Reason: nausea and vomiting) Qty: 20 0RF Discharge Orders: Discharge ED (Routine); Ordered 06/26/22 Ordered By: Henrik Meier Referrals: Trice Hoskins MD [Primary Care Provider] - Discharge Diet: Usual diet Discharge Activity: Increase activity as tolerated and Use walker/crutches as instructed Patient Instructions: Opioid Safety Activity Restrictions/Additional Instructions: Continue all your routinely prescribed medications. Ensure you are drinking normal amount of fluids and caloric intake. Follow-up with cardiology Wednesday as scheduled. If you develop any recurrent similar symptoms or new concerning symptoms return to this or the nearest emergency department immediately. Coding Level of Care Code ED Crm Specialist for Carmen Fwrosmery Exam Comprehensive
[2022-06-26 12:33] LABS: Basophils % 0.1 %; Eosinophils % 0.1 %; Hematocrit 37.6 % (37.0-47.0); Hemoglobin 12.5 g/dL (11.5-15.3); Lymphocytes # 0.6 10^3/uL (0.8-4.8); Lymphocytes % 8.1 %; Mean Corpuscular HGB Conc 33.2 g/dL (30.0-36.0); Mean Corpuscular Hemoglobin 30.4 pg (28.0-34.0); Mean Corpuscular Volume 91.5 fl (81-99); Monocytes # 0.2 10^3/uL (0.2-0.9); Monocytes % 2.4 %; Neutrophils # 6.63 10^3/uL (1.8-7.7); Neutrophils % 88.2 %; Nucleated Red Blood Cells % 0 %; Platelet Count 258 10^3/cmm (130-400); Red Blood Count 4.11 10^6/uL (4.1-5.3); Red Cell Distribution Width 13.3 % (12.1-15.1); White Blood Count 7.5 10^3/uL (4.0-10.0)
[2022-06-26 12:55] VITALS: BP 135/85; PULSE 80; RESP 16; O2SAT 95
[2022-06-26] MEDS: sodium chloride 0.9% 1,000 ML 999 ML IV (12:57)
[2022-06-26 13:39] LABS: Alanine Aminotransferase 19 U/L (0-33); Alkaline Phosphatase 58 U/L (35-105); Aspartate Amino Transferase 17 U/L (0-32); Blood Urea Nitrogen 5 mg/dL (6-20); Calcium 8.9 mg/dL (8.5-10.5); Carbon Dioxide 25 mmol/L (22-29); Chloride 104 mmol/L (98-107); Creatinine Clr Calc Pharmacy 104.7065; Globulin 2.2 g/dL (1.3-4.6); Glomerular Filtration Rate 105.8 mL/min (90-130); Glucose 116 mg/dL (65-115); Osmolality Calculated 288 mOsm/kg (285-295); Sodium 140 mmol/L (136-145); Total Bilirubin 0.2 mg/dL (0.15-1.2); Total Protein 6.2 g/dL (6.6-8.7)
[2022-06-26 14:15] VITALS: BP 140/84; BP 142/89; BP 154/89; PULSE 73; PULSE 80; PULSE 91
[2022-06-26 15:01] VITALS: BP 135/85; PULSE 80; RESP 16; O2SAT 95
== END 2022-06-26 15:03 | disposition home or self-care (01) ==
PROVIDERS: Emergency Provider Emergency Medicine; PCP Internal Medicine
DX: R55 Syncope and collapse (principal); G12.21 Amyotrophic lateral sclerosis; Z77.22 Contact with and (suspected) exposure to environmental tobacco smoke (acute) (chronic); J44.9 Chronic obstructive pulmonary disease, unspecified; I10 Essential (primary) hypertension
CPT/HCPCS: 36415; 71045; 80053; 85025; 93005; 96360; 99285; J7030

== ENCOUNTER → 2022-06-30 13:24 | Outpatient (BNVA) | payer MEDICARE, MEDICAID, SELFPAY | PROVIDERS: PCP Internal Medicine; Visit Provider Nurse Practitioner Family | DX: R00.1 Bradycardia, unspecified (principal) | CPT/HCPCS: 99214 ==

== ENCOUNTER 2022-07-14 08:40 | Outpatient (CLI) | payer MEDICARE, MEDICAID, SELFPAY ==
--- NOTE | 2022-07-14 | ECG_ITS ---
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 Interpretive Statements NAME OF STUDY: LEXISCAN SESTAMIBI STRESS TEST INDICATION: [Chest Pain, ] Procedure: At the baseline, the blood pressure was 127/101 mmHg with a heart rate of 53 bpm. The electrocardiogram showed normal sinus rhythm, normal axis with normal ST and T's. The Lexiscan was infused over a period of 20 seconds. A total of 0.4 mg of Lexiscan was infused. The stress phase was continued for a total of 5 minutes. Heart rate was at the end of stress phase was 86 bpm and a blood pressure of 132/81 mmHg. The EKG at the peak infusion revealed since normal sinus rhythm with no significant ST-T wave changes. Sestamibi was injected 20 seconds after the Lexiscan infusion. Blood pressure at the end of recovery phase was 129/80 mmHg with a heart rate of 82 bpm. Conclusion: 1. Normal EKG response to Lexiscan infusion 2. No Lexiscan induced chest pain or cardiac arrhythmia. 3. Normal blood pressure and heart rate response. 4. Sestamibi/sestamibi perfusion scan pending; see separate report. Electronically Signed On 08-02-2022 21:19:12 CDT by Jaylen Maddox M.D. [email or web address]
[2022-07-14 08:49] VITALS: BMI 21.4
--- NOTE | 2022-07-14 08:50 | NMCV_ITS ---
NM christine perf SPECT r/s* [id number] Megan Mandujano Age: 51 Gender: F : 1970 Exam Date: 07/14/2022 10:06 Ordering Phys: Penny Flores Technologist: SEBASTIÁN Mosqueda Exam Location: [facility] Indications: CHEST PAIN STRESS TEST Please see separate stress test report in [facility] for full findings IMAGE PROTOCOL Rest/Stress 1 Lexiscan Day Radiopharmaceutical Dose (mCi) Administration Site Administered by Rest: Tc-99m 10.6 IV SEBASTIÁN Guerrero Sestamibi Stress:Tc-99m 32.6 IV SEBASTIÁN Guerrero Sestamibi Rest: 14-Jul-2022 60 Discovery 630 Stress: 14-Jul-2022 30 Discovery 630 0.4mg Lexiscan. Supine position only as patient was unable to lay prone. 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 No significant area of ischemia seen. FUNCTIONAL RESULTS (calculated via Gated SPECT) Stress Image LV EF (%): 82 Stress EDV (mL):71 TID: 0.9 Stress ESV (mL):13 FUNCTIONAL FINDINGS: There is normal left ventricular systolic function. IMPRESSIONS 1. 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 No significant ischemia is seen. 2. LV systolic function is normal. Jaylen Maddox MD (Electronically Signed) Final Date: 15 July 2022 21:56 S
[2022-07-14] MEDS: regadenoson 0.4 Mg/5 ml Syringe IVP (10:39)
[2022-07-14] MEDS: ondansetron 2 mg/ML SDV 2 mL 4 MG IVP ×2 (10:52→11:27)
[2022-07-14] MEDS: aminophylline 25 mg/mL SDV 10 mL IVP (10:57)
[2022-07-14 10:58] VITALS: BP 134/81; PULSE 89
== END 2022-07-14 08:41 | disposition home or self-care (01) ==
LOC: CDL 08:44
PROVIDERS: PCP Internal Medicine; Visit Provider Nurse Practitioner Family
DX: R07.9 Chest pain, unspecified (principal); R11.0 Nausea
CPT/HCPCS: 78452; 93017; A9500; J0280; J2405; J2785

== ENCOUNTER 2023-04-09 14:27 | Outpatient (CLI) | payer MEDICARE, MEDICAID, SELFPAY ==
--- NOTE | 2023-04-09 14:33 | MM_ITS ---
WS: [id number] BILATERAL 3D TOMOSYNTHESIS DIGITAL SCREENING MAMMOGRAPHY WITH CAD CLINICAL INFORMATION: SCREENING HISTORY: Screening mammogram. No current complaints. COMPARISON: 2020 TECHNIQUE: Bilateral CC and MLO views. FINDINGS: The breasts are composed of heterogeneous fibroglandular density tissue, which can limit the detectio n of small underlying mass lesions. No suspicious mass, asymmetry, calcifications, or architectural d istortion. No evidence of malignancy. A few incidental punctate calcifications. MM/[place] [id number] IMPRESSION: BI-RADS: 2-Benign FOLLOW UP: 1 Year Follow-up Recommend return to annual screening mammography.
== END 2023-04-09 14:28 | disposition home or self-care (01) ==
LOC: RAD 14:31
PROVIDERS: PCP Internal Medicine; Visit Provider Nurse Practitioner Family
DX: Z12.31 Encounter for screening mammogram for malignant neoplasm of breast (principal)
CPT/HCPCS: 77063; 77067

== ENCOUNTER 2025-02-05 13:05 | Outpatient (CLI) | payer MEDICARE, MEDICAID, SELFPAY ==
--- NOTE | 2025-02-05 13:17 | MM_ITS ---
WS: [id number] BILATERAL 3D TOMOSYNTHESIS DIGITAL DIAGNOSTIC MAMMOGRAPHY WITH CAD CLINICAL INFORMATION: LEFT BREAST PAIN HISTORY: LEFT breast pain COMPARISON: 2022 TECHNIQUE: Bilateral CC, MLO, and ML views. FINDINGS: The breasts are composed of heterogeneous fibroglandular density, which can limit the detection of small underlying mass lesions. Incidental punctate and lucent centered calcifications. Pain markers upper outer LEFT breast. Dense underlying parenchymal tissue. Ultrasound of this area is pending. Unremarkable RIGHT breast with a few incidental calcifications. ULTRASOUND BREAST LEFT TECHNIQUE: Ultrasound left breast focused area of concern. CLINICAL INFORMATION: LEFT BREAST PAIN FINDINGS: Ultrasound LEFT breast area of pain. Retroareolar ultrasound demonstrates dense underlying parenchymal tissue. No suspicious abnormalities in this area. Ultrasound area of concern 6 o'clock position also demonstrates dense underlying parenchymal tissue. No suspicious cystic or solid lesions. No lesions to target for biopsy. MM/MM diag BI tomosynthesis [id number] IMPRESSION: DENSITY: The breasts are heterogeneously dense, which may obscure small masses. BI-RADS: 2 - Benign FOLLOW UP: 1 Year Follow-up Recommend return to annual screening mammography.
== END 2025-02-05 13:06 | disposition home or self-care (01) ==
LOC: RAD 13:09
PROVIDERS: PCP Internal Medicine; Visit Provider Nurse Practitioner Family
DX: N64.4 Mastodynia (principal); R92.333 Mammographic heterogeneous density, bilateral breasts; R92.1 Mammographic calcification found on diagnostic imaging of breast
CPT/HCPCS: 76642; 77062; G0279

== ENCOUNTER 2025-05-04 15:01 | Outpatient (CLI) | payer MEDICARE, MEDICAID, SELFPAY ==
--- NOTE | 2025-05-04 15:09 | XR_ITS ---
WS: [id number] Exam: XR knee RT 3V* [id number] Date/Time of Exam: 05/04/2025 3:14 PM Reason For Exam: KNEE PAIN, RIGHT No fracture. The joints are preserved. No joint effusion or soft tissue abnormality. XR/XR knee RT 3V* [id number] IMPRESSION: 1. Negative RIGHT knee.
--- NOTE | 2025-05-04 15:09 | XR_ITS ---
WS: [id number] Exam: XR knee LT 3V* [id number] Date/Time of Exam: 05/04/2025 3:14 PM Reason For Exam: KNEE, PAIN, LEFT Comparison 04/08/2021. No fracture. The joint compartments are preserved. Normal soft tissues. No joint effusion. XR/XR knee LT 3V* [id number] IMPRESSION: 1. Normal LEFT knee.
== END 2025-05-04 15:02 | disposition home or self-care (01) ==
LOC: RAD 15:04
PROVIDERS: PCP Internal Medicine; Visit Provider Internal Medicine
DX: M25.562 Pain in left knee (principal); M25.561 Pain in right knee
CPT/HCPCS: 73562

== ENCOUNTER → 2025-05-17 10:02 | Outpatient (BNVA) | payer MEDICARE, MEDICAID, SELFPAY | PROVIDERS: PCP Internal Medicine; Visit Provider Orthopaedic Surgery | DX: M25.561 Pain in right knee (principal); M25.562 Pain in left knee; G89.29 Other chronic pain | CPT/HCPCS: 99204 ==

== ENCOUNTER → 2025-06-21 12:57 | Outpatient (BNVA) | payer MEDICARE, MEDICAID, SELFPAY | PROVIDERS: PCP Internal Medicine; Visit Provider Orthopaedic Surgery | DX: M25.561 Pain in right knee (principal); M25.562 Pain in left knee; G89.29 Other chronic pain; G12.21 Amyotrophic lateral sclerosis | CPT/HCPCS: 99213 ==

== ENCOUNTER 2025-07-19 10:59 | Outpatient (RCR) | payer MEDICARE, MEDICAID, SELFPAY | END 2025-08-07 23:59 | disposition home or self-care (01) | LOC: SPT 10:59 | PROVIDERS: PCP Internal Medicine; Visit Provider Orthopaedic Surgery | DX: M25.561 Pain in right knee (principal); M25.562 Pain in left knee; G89.29 Other chronic pain | CPT/HCPCS: 97110; 97161 ==

== ENCOUNTER → 2025-08-09 13:05 | Outpatient (BNVA) | payer MEDICARE, MEDICAID, SELFPAY | PROVIDERS: PCP Internal Medicine; Visit Provider Orthopaedic Surgery | DX: M25.561 Pain in right knee (principal); M25.562 Pain in left knee; G89.29 Other chronic pain | CPT/HCPCS: 99213 ==

== ENCOUNTER 2025-09-06 14:38 | Outpatient (RCR) | payer MEDICARE, MEDICAID, SELFPAY | END 2025-09-07 23:59 | disposition home or self-care (01) | LOC: SPT 14:38 | PROVIDERS: PCP Internal Medicine; Visit Provider Orthopaedic Surgery | DX: M25.561 Pain in right knee (principal); M25.562 Pain in left knee; G89.29 Other chronic pain | CPT/HCPCS: 97110 ==

== ENCOUNTER 2025-09-27 16:32 | Outpatient (RCR) | payer MEDICARE, MEDICAID, SELFPAY | END 2025-10-07 23:59 | disposition home or self-care (01) | LOC: SPT 16:32 | PROVIDERS: PCP Internal Medicine; Visit Provider Orthopaedic Surgery | DX: M25.561 Pain in right knee (principal); M25.562 Pain in left knee; G89.29 Other chronic pain | CPT/HCPCS: 97110 ==

== ENCOUNTER 2025-11-06 14:03 | Outpatient (RCR) | payer MEDICARE, MEDICAID, SELFPAY | END 2025-11-07 23:59 | disposition home or self-care (01) | LOC: SPT 14:03 | PROVIDERS: PCP Internal Medicine; Visit Provider Orthopaedic Surgery | DX: M25.561 Pain in right knee (principal); M25.562 Pain in left knee; G89.29 Other chronic pain | CPT/HCPCS: 97110 ==